=== PATIENT | male | born 1950 | race Caucasian/White ===

== ENCOUNTER 2016-08-30 09:40 | Emergency (ER) | payer MEDICARE, MEDICAID ==
[~2016-08-30] VITALS: Ht 182.9 cm; Wt 110.0 kg
[~2016-08-30 09:40] MED LIST: AMOX-366 PO; AMOX500C2 PO; ASPI325T32 PO; CHOL500050 PO; FERR-83 PO; GABA-502 PO; IBUP200C PO; NICO1PAT5 TOPICAL; OXYC1TAB24 PO; SENN-133 PO
[2016-08-30 10:04] VITALS: BP 140/97; PULSE 95; RESP 16; O2SAT 97
--- NOTE | 2016-08-30 10:14 | ED.REPORT ---
HPI-Extremity Problem Lower Date of Service Aug 30, 2016 ED Provider: Dr. Marc Conklin Patient is as 65 year old male who presents to the ED with right foot pain onset 2 weeks ago. Pt began experiencing redness and swelling which has progressively gotten worse since onset. 5 days ago he began experiencing erythema spreading up his right leg and also noted numbness and tingling radiating from 3/4 up the tibia down to the toes. He hit his little toe on his left foot 2 weeks ago and also hit his right gomez. Pt c/o associated occasional diaphoresis and has felt warm. Pt denies loss of strength, chest pain, and SOB. Pt has been leading a sedentary lifestyle. Nursing Notes Stated Complaint: FEET PAIN Chief Complaint: Extremity Trauma Nursing Notes Reviewed: Yes Allergies: Coded Allergies: Sulfa (Sulfonamide Antibiotics) (Verified Adverse Reaction, Severe, nausea , vomitting, 09/12/16) Scheduled Amoxicillin/Clav K 875-125 mg (Augmentin 875-125 mg) 1 Each Tablet 1 TABLET PO BID Atorvastatin Calcium (Atorvastatin Calcium) 10 Mg Tablet 10 MG PO HS Clopidogrel (Clopidogrel) 75 Mg Tablet 75 MG PO DAILY Insulin Glargine (Lantus U100 Insulin Vial) 100 Unit/Ml Vial 30 UNIT SUBQ HS Metformin (Glucophage) 500 Mg Tablet 500 MG PO BID Nicotine 21 mg/24 hr Patch (Nicotine 21 mg/24 hr Patch) 1 Each Patch.td24 1 PATCH TOPICAL DAILY Scheduled PRN Hydrocodone-Acetaminophen 5-325 mg (Hydrocodone-Acetaminophen 5-325 mg) 1 Each Tablet 1-2 TABLET PO Q4H PRN PRN For Mild Pain Hydrocodone-Acetaminophen 5-325 mg (Hydrocodone-Acetaminophen 5-325 mg) 1 Each Tablet 1 TABLET PO Q4H PRN PRN For Pain Sennosides (Senna) 8.6 Mg Tablet 17.2 MG PO BID PRN PRN For Constipation General Time Seen by MD: 10:14 Chief Complaint Other (Right foot swelling and pain) Hx Obtained From: Patient Arrived By: Walk-in Onset Occurred: 5 days ago Symptom Duration: Since onset Location: : Foot right Severity: Current: Mild Severity: Maximum: Mild Recent Healthcare: No recent doctor visit, No recent hospitalization Similar Sx Previous: No Past Medical History Past Medical History Notes: PCP: Dr. Mitchell Past Medical History Arthritis Denies: Diabetes mellitus Past Surgical History Left index finger Knee Multiple I&D Smoking History Current Every Day Smoker Social History Alcohol Use: 3-5 per day Drug Use: THC Ambulatory Status Independent Review of Systems Constitutional: Denies: Fever Musculoskeletal: Reports: Extremity swelling (right foot and right calf) Skin: Reports Diaphoresis, Reports Rash Neurologic: Reports: Numbness (and tingling in foot), Denies: Weakness Complete sys rev & neg: except as marked. Physical Exam Initial Vital Signs Initial VS: Reviewed, Vital signs normal Head / Eyes: Atraumatic, Normocephalic, PERRL ENT: Mucous membranes moist, Conjunctiva normal, No scleral icterus Neck: Supple, Non-tender, Full range of motion Respiratory: Breath sounds normal, Clear to auscultation, No respiratory distress Cardiovascular: Regular rate & rhythm, Heart sounds normal, Intact distal pulses Neurologic: Alert, Oriented, Nonfocal Psychiatric: Mood/affect normal, Behavior normal, Normal thought content Lower Extremity / Pelvis / MS: Atraumatic, No deformity, Neurologic intact, Vascular intact Right Leg / Calf: Positive: Erythema present, Swelling present... (Moderate) Redness and swelling of right posterior aspect of leg erythema spreading up right leg radiating from 3/4 up the tibia down to toes Right Foot: Positive: Swelling present... 0.5cm ulceration over lateral right fifth toe thickened flaky nails General/Constitutional: Awake, Alert, No acute distress, Cooperative, Not toxic appearing Re-Eval/Medical Decision Med Decision/Clinical Course 65-year-old male presenting with warmth, swelling, tenderness, and erythema of the right lower extremity. He experienced extremity trauma about 2 weeks ago when this started. He also has significant scaling and deep crevices in the lower extremity which could have led to an infection. He has no signs of sepsis or severely abnormal vital signs today. The demarcation of erythema was traced with a marker patient was instructed to take antibiotics and pain medicine, return if symptoms worsen or are not improving. Re-Evaluation/Progress : Time of Eval: 11:15 Re-Evaluation/Progress Note: Pt rechecked. Informed pt of diagnosis and plan for treatment. Pt understands and agrees with plan. F/U and RTER warnings given. All questions addressed. Counseled Regarding: Diagnosis, Need for follow-up, When/why to return to ED Discharge & Departure Impression: Primary Impression: Cellulitis of right lower extremity Disposition: Home Discharge Condition All VS Reviewed: Yes Condition: Stable Patient Instructions: Cellulitis (ED) Additional Instructions: Take antibiotics and pain medication as prescribed. Follow up with your primary care provider next week. Return to the ER if the redness spreads, the pain increases, or you start having drainage. Use ibuprofen as a baseline pain medication and use [place] as needed for breakthrough pain. Referrals: Tiffany Mitchell MD (PCP) Scribe Attestation Portion of this note were transcribed by Trace Stock and Janis Jimenez. I, Dr. Conklin, personally performed the history, physical exam, and medical decision-making: I reviewed and confirmed the accuracy for the information in the transcribed note. Signed by: nuno Fletcher, 08/30/16 1200 copies to: Tiffany Mitchell MD, Gary R DO Aug 30, 2016 10:14 JANIS JIMENEZ Aug 30, 2016 11:18 TRACE STOCK Aug 30, 2016 12:05 Marc Conklin DO Aug 30, 2016 10:14 JANIS JIMENEZ Aug 30, 2016 11:18 TRACE STOCK Aug 30, 2016 12:05
[2016-08-30 11:24] VITALS: BP 188/96; PULSE 98; RESP 13; O2SAT 96
[2016-08-30] MEDS ORDERED: HYDR-4003 PO (11:24)
[2016-08-30] MEDS ORDERED: CLIN-78 PO (11:24)
[2016-08-30 11:34] VITALS: BP 188/96; PULSE 98; RESP 13; O2SAT 96
== END 2016-08-30 11:34 | disposition home or self-care (01) ==
LOC: SED 09:40
DX: L03.115 Cellulitis of right lower limb (principal); W22.8XXA Striking against or struck by other objects, initial encounter; Y92.9 Unspecified place or not applicable; Y93.89 Activity, other specified; Y99.8 Other external cause status; F17.200 Nicotine dependence, unspecified, uncomplicated; Z79.84 Long term (current) use of oral hypoglycemic drugs; Z79.4 Long term (current) use of insulin; Z88.2 Allergy status to sulfonamides

== ENCOUNTER 2016-09-05 16:47 | Inpatient (IN) | payer MEDICARE, MEDICAID ==
[~2016-09-05] VITALS: Ht 182.9 cm; Wt 101.0 kg
[~2016-09-05 16:47] MED LIST changes: +CLIN-78 PO; +HYDR-4003 PO
[2016-09-05 16:52] VITALS: BP 148/86; PULSE 107; RESP 16; O2SAT 94
[2016-09-05] MEDS ORDERED: 0.9% Sodium Chloride 1,000 ML IV ONE (20:15)
--- NOTE | 2016-09-05 20:24 | ED.REPORT ---
HPI-Rash / Abscess Date of Service Sep 05, 2016 ED Provider: Vito Cali PA-C Patient is an otherwise healthy 65-year-old male who presents to the emergency department with right foot cellulitis. He was seen in the department approximately 6 days ago, placed on clindamycin. He reports inadequate response , with redness advancing past the demarcation placed at his first visit. He states his pain is as severe as it was previously, and did not respond well to narcotic pain medication. Admits to episodes of feeling hot last night. Denies chills, malaise, abdominal pain, vomiting, sweating. Denies known exposure to MRSA Nursing Notes Stated Complaint: CELLULITIS RT FOOT Chief Complaint: Extremity Trauma Nursing Notes Reviewed: Yes Allergies: Coded Allergies: Sulfa (Sulfonamide Antibiotics) (Verified Adverse Reaction, Severe, nausea , vomitting, 09/05/16) Scheduled Amoxicillin (Amoxicillin) 500 Mg Capsule 500 MG PO QID Amoxicillin/Clav K 875-125 mg (Augmentin 875-125 mg) 1 Each Tablet 1 TABLET PO BID Cholecalciferol (Vitamin D3) (Vitamin D3) 50,000 Unit Capsule 50,000 UNIT PO every friday Clindamycin (Clindamycin) 300 Mg Capsule 300 MG PO QID Ferrous Sulfate (Ferrous Sulfate) 325 Mg Tablet 325 MG PO DAILYWM Gabapentin (Gabapentin) 300 Mg Capsule 300 MG PO QAM Gabapentin (Gabapentin) 300 Mg Capsule 600 MG PO HS Scheduled PRN Aspirin (Aspirin) 325 Mg Tablet 325 MG PO WEEKLY PRN PRN For Pain Hydrocodone-Acetaminophen 5-325 mg (Hydrocodone-Acetaminophen 5-325 mg) 1 Each Tablet 1 TABLET PO Q4H PRN PRN For Pain Ibuprofen (Ibuprofen) 200 Mg Capsule 200 MG PO DAILY PRN PRN For Pain Nicotine 14 mg/24 hr Patch (Nicotine 14 mg/24 hr Patch) 1 Patch Patch 1 PATCH TOPICAL DAILY PRN PRN For Tobacco Withdrawal Sennosides (Senna) 8.6 Mg Tablet 17.2 MG PO BID PRN PRN For Constipation oxyCODONE-Acetaminophen 5-325 mg (oxyCODONE-Acetaminophen 5-325 mg) 1 Tab Tablet 1 TAB PO Q6H PRN PRN For Severe Pain General Time Seen by MD: 19:57 Chief Complaint Tender/swollen area (right foot) Past Medical History Past Medical History Notes: PCP: Dr. Paula Past Medical History Arthritis Past Surgical History Left index finger Knee Multiple I&D Smoking History Current Every Day Smoker Social History Alcohol Use: 3-5 per day Drug Use: THC Ambulatory Status Independent Review of Systems Negative unless stated otherwise in history of present illness Physical Exam General: Well appearing, well developed, well nourished, no acute distress. Head: Atraumatic, normocephalic. Eyes: No scleral icterus or injection. No discharge. Vision grossly intact. ENT: Voice clear, hearing grossly intact. Respiratory: Regular rate and rhythm. Breath sounds present, clear to auscultation and equal bilaterally. Cardiovascular: Regular rate and rhythm, without murmur, gallop or rub. No pedal edema. Gastrointestinal: Abdomen flat and non-tender without guarding or rebound. Bowel sounds normoactive. Right foot: 1 cm eschar on the lateral fifth digit, 2 cm eschar on anterior leg. Widely distributed redness, warmth, swelling and tenderness to midshin. No exudate noted. Slight redness beyond demarcation placed 6 days ago. Skin: Warm and dry. Neurological: Grossly nonfocal. Antalgic gait Psychological: Alert and oriented. Speech appropriate, linear and logical. Behavior appropriate. Initial Vital Signs Vital Signs (First) Date Time Temp Pulse Resp B/P Pulse Ox O2 Delivery O2 Flow Rate FiO2 09/05/16 16:52 36.1 107 16 148/86 94 Room Air Heart rate measured at 100 bpm during physical exam. Initial VS: Reviewed, Vital signs abnormal (tachycardic) Interpretation & Diagnostics Interpretation & Diagnostics: Warm foot with pulsations audible on hand-held Doppler Venous Doppler sound of right leg negative for DVT. Lab Results Interpretation Result Diagram: 09/05/16202909/05/16 2030 Test 09/05/16 20:30 White Blood Count 7.7th/mm3 (3.8-10.1) Red Blood Count 5.33mil/mm3 (4.40-5.80) Hemoglobin 16.5g/dL (13.8-17.2) Hematocrit 47.2% (41.0-50.0) Mean Corpuscular Volume 88.6fL (81-100) Mean Corpuscular Hemoglobin 31.0pg (27.0-35.0) Mean Corpuscular Hemoglobin Concent 35.0% (32.0-37.0) Red Cell Distribution Width 12.7% (12.3-15.4) Platelet Count 231bil/L (150-400) Neutrophils (%) (Auto) 55.6% (40-74) Lymphocytes (%) (Auto) 34.9% (14-46) Monocytes (%) (Auto) 7.0% (4-12) Eosinophils (%) (Auto) 2.1% (0-5) Basophils (%) (Auto) 0.3% (0-3) Sodium Level 137mEq/L (134-144) Potassium Level 4.3mEq/L (3.5-5.2) Chloride Level 101mEq/L (97-108) Carbon Dioxide Level 24mmol/L (18-29) Blood Urea Nitrogen 16mg/dL (8-27) Creatinine 0.62mg/dL (0.76-1.27) Estimat Glomerular Filtration Rate 138mL/min (>59) Glucose Level 295mg/dL (60-99) Calcium Level 9.4mg/dL (8.5-10.1) Total Bilirubin 0.4mg/dL (0.0-1.2) Aspartate Amino Transf (AST/SGOT) 13U/L (0-50) Alanine Aminotransferase (ALT/SGPT) 16U/L (0-44) Alkaline Phosphatase 99U/L (25-160) Total Protein 7.5g/dL (6.4-8.4) Albumin 4.3g/dL (3.4-5.0) Hold Solis Top Tube Received (Received) Re-Eval/Medical Decision Consultation : Referral / Consult Name: Esly Dela Cruz DO Consulted With: Hospitalist Requested Call at: 21:06 Call Returned at: 21:16 Assistant Speech Language Pathologist: Accepts admit Discharge & Departure Impression: Primary Impression: Cellulitis of right lower extremity Disposition: ADMITTED TO HOSPITAL Referrals: Tiffany Mitchell MD (PCP) copies to: Tiffany Mitchell MD, Seth PA-C Sep 05, 2016 20:24
[2016-09-05 20:41] LABS: BASOPHILS % (AUTO) 0.3 % (0-3); EOSINOPHILS % (AUTO) 2.1 % (0-5); Mean Corpuscular Volume 88.6 fL (81-100); NEUTROPHILS % (AUTO) 55.6 % (40-74); Platelet Count 231 bil/L (150-400)
[2016-09-05] MEDS ORDERED: Vancomycin Dose per Pharmacist XX ONE (20:50)
[2016-09-05] MEDS ORDERED: Alum-Mag Hydrox-Simeth 30 mL Suspension PO PRN (21:25)
[2016-09-05] MEDS ORDERED: Polyethylene Glycol (PEG) 17 Gm Powder PO PRN (21:25)
[2016-09-05] MEDS ORDERED: Ondansetron 2 mg/mL 2 mL Inj IVPUSH PRN (21:25)
[2016-09-05] MEDS ORDERED: cefTRIAXone Inj 2,000 MG in IV Premix 1 EACH IV ONE (21:35)
--- NOTE | 2016-09-05 21:35 | DRSVH ---
PROCEDURE: US VEINOUS LEG DUPLEX UNILATERAL, RIGHT INDICATIONS: right leg swelling TECHNIQUE: Real-time imaging, as well as color and pulse Doppler interrogation, were performed of the lower extr emity deep veins from the inguinal ligament to the popliteal fossa. COMPARISON: None. FINDINGS: The deep veins are normally compressible, and free of intraluminal thrombus. Color and pu lse Doppler demonstrate normal phasic intraluminal flow. There is normal augmentation response to di stal compression maneuver. IMPRESSION: No evidence of deep vein thrombosis involving the right lower extremity. Dictated by: Mary Morgan MD, PhD on 09/05/2016 at 21:33 Approved by: Mary Morgan MD, PhD on 09/05/2016 at 21:33
[2016-09-05] MEDS ORDERED: Insulin Human REGular Inj 100 UNIT in 0.9% Sodium Chloride-Pha MIX 100 ML IV SCH (23:10)
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
[2016-09-05 23:15] LABS: INR 0.91 ratio
--- NOTE | 2016-09-05 23:15 | NUR ---
Admit Took report from SAIMA Guillen from ER @ 2199, unfortunately d/t bed availability did not arrive until 2314 via viji with Hiren, ambulated ind to bed Dx RLE cellulitis vs arterial occlusion, per u/s no dvt found, ankle red area borders marked ,medicated w/toredol in ER w/some effect also patient has orders to start on insulin drip for suspected untreated DM II, admission complete , was initially being with outpatient antibiotic w/out effect, arrived w/Vancomycin running
[2016-09-05 23:45] VITALS: BP 111/41; PULSE 75; RESP 18; O2SAT 92
[2016-09-06] VITALS (15 sets, daily range): BP systolic 126–178; BP diastolic 72–95; PULSE 67–91; RESP 2–20; O2SAT 93–97
[2016-09-06] MEDS: HYDROcodone-APAP 5-325 mg Tablet PO PRN ×3 (01:27→14:20)
[2016-09-06] MEDS: Dextrose 10% 250 ML IV SCH ×2 (02:46→08:04)
[2016-09-06] MEDS ORDERED: Heparin 25K Unit/500mL 0.45 NS 25,000 UNIT in IV Premix 1 EACH IV SCH (02:50)
[2016-09-06] MEDS ORDERED: Heparin 5,000 Unit/mL Inj IVPUSH PRN (02:50)
[2016-09-06] MEDS ORDERED: Heparin 5,000 Unit/mL Inj IVPUSH ONE (02:55)
--- NOTE | 2016-09-06 03:32 | NUR ---
Heparin drip heparin gtt started per new order dbl check w/ Marisol León RN starting @ 18 unit/kg first PTT @ 0930
[2016-09-06 07:32] LABS: BASOPHILS % (AUTO) 0.5 % (0-3); MONOCYTES % (AUTO) 8.7 % (4-12); Mean Corpuscular Hemoglobin 31.2 pg (27.0-35.0); Mean Corpuscular Volume 89.5 fL (81-100); NEUTROPHILS % (AUTO) 51.9 % (40-74); Platelet Count 214 bil/L (150-400)
[2016-09-06 08:32] LABS: Magnesium 2.2 mg/dL (1.6-2.6); Phosphorus 3.5 mg/dL (2.5-4.9)
--- NOTE | 2016-09-06 08:47 | NUR ---
Insulin gtt Insulin gtt discontinued per Dr Herr. Pt will receive Humalog sliding scale ACHS. Diet also changed to ADA per Dr Herr. Will continue to monitor BG levels.
[2016-09-06] MEDS: cefTRIAXone Inj 2,000 MG in IV Premix 1 EACH IV SCH (09:37)
--- NOTE | 2016-09-06 09:45 | NUR ---
Heparin gtt Heparin gtt stopped per Dr Herr. Pt will be having a procedure.
--- NOTE | 2016-09-06 10:42 | NUR ---
Off floor Pt off floor for brick and blocker aid labor procedure.
[2016-09-06] MEDS ORDERED: 0.9% Sodium Chloride 1,000 ML ONE (10:51)
[2016-09-06] MEDS ORDERED: Heparin 5,000 Units/500 mL NS Premix IV ONE (10:51)
[2016-09-06] MEDS ORDERED: Heparin 1,000 Unit/mL 10 mL Inj ONE (10:51)
[2016-09-06] MEDS ORDERED: fentaNYL-PF 50 mCg/mL 2 mL Inj ONE ×2 (10:52→11:49)
[2016-09-06] MEDS ORDERED: Ondansetron 2 mg/mL 2 mL Inj IVPUSH PRN (14:45)
[2016-09-06] MEDS ORDERED: 0.9% Sodium Chloride 400 ML (4 HRS) IV ONE (14:45)
[2016-09-06] MEDS ORDERED: Sodium Chloride LOK Flush 10 mL Syringe IVFLUSH PRN (14:45)
[2016-09-06] MEDS ORDERED: 0.9% Sodium Chloride 250 ML BOLUS IV PRN (14:45)
[2016-09-06] MEDS ORDERED: Atropine 1 mg/10 mL (Code) Syringe IVPUSH PRN (14:45)
--- NOTE | 2016-09-06 14:56 | NUR ---
microbiological lab technician NS 500 cc's during procedure.
--- NOTE | 2016-09-06 15:05 | NUR ---
Back on unit Pt back on unit. Pt denies current foot/leg pain. Pt has a STEPHENS at 5/10 but believes it was r/t the NC and is placing it in his mouth. Does not want another pain med at this time. Currently on 2L O2 at 94%. Denies CP and SOB. Some nausea relieved with eating. BG level 216 (after pt started eating). Hospitalist notified of BG level. Groin site is CDI. Will continue to monitor.
--- NOTE | 2016-09-06 16:30 | DRSVH ---
PROCEDURE: REVASC ILIAC W/ STENT INDICATIONS: CLAUDICATION COMPARISON: None. Technique: 1. Conscious sedation for 120 minutes. 2. Retrograde access via the left common femoral artery. 3. Pelvic angiogram. 4. Right lower extremity runoff. 5. Balloon angioplasty and stenting of a focal high-grade stenosis in the right external iliac artery . 6. Balloon angioplasty of multi-focal moderate to high-grade stenoses within the proximal and mid rig ht superficial femoral artery. 7. Completion angiogram. 8. Sheath removal hemostasis. The indications, alternatives, benefits, risks, and complications of the procedure were explained to the patient.. Informed written consent was obtained and placed in the chart. The patient was manjit t to the angiography suite, and conscious sedation was administered intravenously by care home staff, while continuous cardiorespiratory monitoring was performed. Maximum sterile barrier technique was employed per standard protocol, including hand hygiene, cap, ma sk, sterile gown and gloves, and 2% chlorhexidine. One percent lidocaine was used to anesthetize the skin over the left groin. Using Seldinger technique and a micropuncture kit, the left common femoral artery was accessed in a retrograde fashion. The micropuncture sheath was exchanged for a 5 Grenadian sh eath. A 4 Grenadian pigtail catheter was advanced into the distal aorta. A pelvic arteriogram was perfor med. Next, with the aid of a 5 Gren[place] Sos catheter, the right common iliac artery was accessed. Right lower extremity arteriogram was performed. The 5 Grenadian sheath was exchanged for an Riki sheath. Ba lloon angioplasty was performed for a focal high-grade stenosis within the right external iliac arter y. This was performed with a 5 mm x 40 mm high-pressure balloon and subsequently with a 6 mm x 40 mm high-pressure balloon. Next balloon angioplasty was performed for multifocal moderate to high-grade stenoses within the prox imal and mid right superficial femoral artery with the 6 mm x 40 mm high-pressure balloon. Completion arteriogram was performed. Multiple attempts were undertaken with various wires in directing catheters to cross the occluded por tion of the distal SFA without success. Completion angiogram of the right external iliac artery demonstrated a recalcitrant stenosis. For thi s reason, a balloon expandable 7 mm x 39 mm stent was deployed across the angioplasty site. Completio n arteriogram was performed. Perclose closure device was deployed at the left common femoral access site and hemostasis was achiev ed. FINDINGS: Aorta: The distal aorta demonstrates moderate mural irregularity. No aneurysmal dilatation or stenosi s. Left side: A focal moderate grade stenosis is present within the left common iliac artery. The left h ypogastric artery is patent with diffuse mural irregularity. The left external iliac artery is patent with mild to moderate diffuse mural irregularity. A filling defect within the left common femoral ar teries suggests the presence of a moderate to high-grade stenosis. Right side: The common iliac artery is patent. The right hypogastric artery demonstrated diffuse mura l irregularity and is patent. A focal high-grade stenosis is present within the midportion of the rig ht external iliac artery. The more distal external iliac artery is patent. The common femoral artery is patent. The profunda artery is patent. Multifocal moderate to high-grade stenoses are present with in the proximal and midportion of the right superficial femoral artery. The distal right superficial femoral artery is occluded and reconstituted via collaterals at the abductor hiatus. There is no residual narrowing at the angioplasty and stent site in the right external iliac artery. There is resolution of the multifocal narrowing in the proximal and mid superficial femoral artery af ter angioplasty. Of note, a small dissection, which appears patent is present within the midportion o f the right superficial femoral artery after angioplasty. IMPRESSION: 1. Status post angioplasty and stenting of a focal high-grade stenosis within the right external kimi c artery without residual stenosis. 2. Status post angioplasty of multifocal moderate to high-grade stenoses within the proximal and mid superficial femoral artery without residual stenosis. 3. Small, patent appearing dissection within the midportion of the right SFA. 4. Unsuccessful attempt to cross the stenosed portion of the distal right SFA. Consider timely vascul ar surgical consultation to evaluate for possible bypass graft. Dictated by: Ella Amaro M.D. on 09/06/2016 at 16:28 Approved by: Ella Amaro M.D. on 09/06/2016 at 16:28
--- NOTE | 2016-09-06 16:36 | DRSVH ---
PROCEDURE: CT ANGIOGRAPHY OF THE AORTA WITH RUN-OFF WITH AND WITHOUT CONTRAST ([id number]) INDICATIONS: swelling, cyanosis, (-)US TECHNIQUE: After the administration of intravenous contrast, 2 and 5 mm sections acquired from the mid pelvis to the feet, with optional delayed image acquisition from the knees to the feet. 3-dimensional maximum intensity projection (MIP) coronal and sagittal reformats, and/or 3-dimensional volume rendering ref ormatting was then performed. For radiation dose reduction, the following was used: automated expos ure control. COMPARISON: [facility], XA, REVASC ILIAC W/ STENT, 09/06/2016, 11:10. FINDINGS: Image quality: . Extravascular tissues: Non opacified bowel loops demonstrate normal wall thickness and enhancement . There are scattered sigmoid diverticula. No evidence for diverticulitis. No free fluid or air. No retroperitoneal or mesenteric adenopathy. No ventral hernias. Bladder wall thickness is normal. N o inguinal hernias or adenopathy. No suspicious bony lesions. No vertebral body compression fractur es. Right lower extremity: Visualized portions of the hypogastric artery are calcified, but patent. A foc al high-grade stenosis is present within the midportion of the right external iliac artery. A moderat e grade stenosis is present more distally within the right external iliac artery. Mild stenosis is pr esent within the right common femoral artery. Multiple moderate grade stenoses are present within the proximal half of the right superficial femoral artery. The distal right superficial femoral artery i s occluded with reconstitution of the popliteal artery at the abductor hiatus the arch collaterals. T he geniculate portion of the popliteal artery is patent. The tibialis posterior and peroneal arteries are patent to the level of the foot. The anterior tibial artery is patent to the level of the foot. Mild subcutaneous edema is present within the inferior right lower extremity and the foot. A scleroti c lesion is present within the distal right femoral metaphysis. This demonstrates endosteal scallopin g and cortical erosion (series 10, image 256). Left lower extremity: Visualized portions of the left hypogastric artery are densely calcified, but p atent. The left common iliac artery is patent with diffuse mural irregularity secondary to atheromato us calcification. The common femoral artery is patent. The left profunda artery is patent. The proxim al portion of the left superficial femoral artery is patent. The midportion of the left superficial f emoral artery is occluded with reconstitution via collaterals at the abductor hiatus. The left poplit eal artery is patent. The anterior tibial, posterior tibial, and peroneal arteries are patent to the level of the foot. IMPRESSION: 1. Focal high-grade stenosis within the midportion of the left external iliac artery. 2. Occlusion of the inferior aspect of the bilateral superficial femoral arteries with reconstitution of the popliteal arteries at the abductor hiatus via collaterals. 3. 3 vessel bilateral lower extremity runoff. 4. Diverticulosis. No acute diverticulitis. 5. Mild subcutaneous edema within the inferior aspect of the right lower extremity and foot. No edema within the deep fascial layers. 6. Small sclerotic lesion with endosteal scalloping and cortical thinning in the medial, distal right femoral metaphysis. Given the cortical thinning and endosteal scalloping, neoplasm cannot be exclude d. MRI of this region with and without contrast is recommended to further characterize this finding. Dictated by: Ella Amaro M.D. on 09/06/2016 at 16:07 Approved by: Ella Amaro M.D. on 09/06/2016 at 16:34
--- NOTE | 2016-09-06 16:51 | PCM.PNMED ---
Subjective Date of Service Sep 06, 2016 Subjective Patient was examined at bedside today. Patient denies any chest pain, shortness of breath, nausea, vomiting, diarrhea. Patient was complaining of right lower extremity tenderness and discoloration of skin. Exam Vital Signs Vital Sign - Last Date Time Temp Pulse Resp B/P Pulse Ox O2 Delivery O2 Flow Rate FiO2 09/06/16 16:15 36.5 85 14 155/91 94 Nasal Cannula 2.00 Intake and Output 09/05/16 09/05/16 09/06/16 Cumulative From/Thru 15:00 23:00 07:00 09/05/16 16:52 - 09/06/16 06:28 Intake Total 801 ml 801 ml Output Total 650 ml 650 ml Balance 151 ml 151 ml Intake Oral 60 ml 60 ml IV Total 741 ml 741 ml Output Urine Total 650 ml 650 ml # Bowel Movements 0 0 Exam Physical Exam: GEN: Patient was awake, alert, responding appropriately to questions HEENT: PERRLA, EOMI, Neck soft supple, trachea midline, nomocephalic/atraumatic CV: +S1/S2, RRR, no murmurs auscultated Respiratory: CTAB, no wheezes, rales, rhonchi GI: +bowel sounds x4, soft, compressible, non TTP EXT: Right lower extremity positive cyanosis from the knee down to the right fifth digit, ulceration on the plantar surface of the right foot fourth metatarsal area and anterior surface of the distal two thirds tibia. Muscular skeletal:5/5 strength in dorsi and plantar flexion, S1 intact Neuro: CN II-XII grossly intact, +2/4 dorsalis pedis and tibialis posterior pulses Psych: mood and affect were appropriate Physical exam post procedure Right lower extremity pink from the knee down to the fifth digit of the right foot. Muscular skeletal:5/5 strength in dorsi and plantar flexion, S1 intact Neuro: CN II-XII grossly intact, +2/4 dorsalis pedis and tibialis posterior pulses IVs and Medications Medications Reviewed: Medications were reviewed in detail Medications Current Medications Ceftriaxone Sodium/Dextrose/ Premix 50 ml @ 100 mls/hr Q24 IV Last administered on 09/06/16t 09:37; Admin Dose 100 MLS/HR; Start 09/06/16 at 08:30 Al Hydrox/Mg Hydrox/Simethicone 30 ml Q6H PRN PO; Start 09/05/16 at 21:25 Ondansetron HCl 4 to 8 mg Q4H PRN IVPUSH; Start 09/05/16 at 21:25 Senna 17.2 mg BID PRN PO; Start 09/05/16 at 21:25 Polyethylene Glycol 17 gm DAILY PRN PO; Start 09/05/16 at 21:25 Ketorolac Tromethamine 30 mg 30 mg Q8H PRN IV; Start 09/05/16 at 23:10; Stop at 02:52; Status DC Insulin Human Regular/Sodium Chloride 101 ml @ 0 mls/hr Q0M IV Last administered on 09/06/16 02:47; Admin Dose 0 MLS/HR; Start 09/05/16 at 23:10; Stop 09/06/16 at 09:18; Status DC Acetaminophen/ Hydrocodone Bitart for severe pain not control... Q4H PRN PO Last administered on 09/06/16 14:20; Admin Dose 2 TABLET; Start 09/06/16 at 00: 45 Dextrose/Water 250 ml @ 50 mls/hr Q5H IV Last administered on 09/06/16 08:04; Admin Dose 50 MLS/HR; Start 09/06/16 at 02:40; Stop 09/06/16 at 09:18; Status DC Heparin Sodium (Porcine) Per Protocol for a... PRN PRN IVPUSH; Start 09/06/16 at 02:50; Stop 09/06/16 at 09:44; Status DC Insulin Human Lispro PER PROTOCOL PRN PRN SUBQ; Start 09/06/16 at 09:25 Lidocaine HCl 10 ml ONCE PRN INJ; Start 09/06/16 at 14:45 Atropine Sulfate 1 mg ONCE PRN IVPUSH; Start 09/06/16 at 14:45 Sodium Chloride 10 ml AMINATA PRN IVFLUSH; Start 09/06/16 at 14:45 Clopidogrel Bisulfate 75 mg DAILY PO; Start 09/07/16 at 08:30 Acetaminophen 975 mg Q6H PRN PO; Start 09/06/16 at 14:45 Morphine Sulfate 1-4 MG IV PUSH EVERY 5 DEONTE... Q5M PRN IVPUSH; Start 09/06/16 at 14:45; Stop 09/06/16 at 16:24; Status DC Ondansetron HCl 4-8 MG IV PUSH EVERY 4 HO... Q4H PRN IVPUSH; Start 09/06/16 at 14:45 Morphine Sulfate 2 mg Q4H PRN IVPUSH; Start 09/06/16 at 16:20 Insulin Glargine 10 unit HS SUBQ; Start 09/06/16 at 21:00 Lab and Diagnostics Result Diagram: 09/06/16 0654 09/06/16 0654 Microbiology Additional Diagnostics Venous duplex right lower extremity IMPRESSION: No evidence of deep vein thrombosis involving the right lower extremity. Dictated by: Mary Morgan MD, PhD on 09/05/2016 at 21:33 Assessment & Plan This 65-year-old male with significant smoking history and diabetes has been untreated presents to the ED with ongoing right lower extremity swelling, pain, erythema, and cyanosis of toes suspicious for arterial occlusion. Suspected arterial embolism/occlusion with subacute limb ischemia; present on admission; ongoing -Patient was previously treated for this erythema with clindamycin without the mildest of resolution; patient reports history of PVD -Patient does not present with fever, white count, left shift, chills, or other signs of infection; patient is diabetic but the history suggests that the eschars started sometime after the erythema and swelling -Venous duplex was negative for DVT -CT angiography of right lower extremity -Discontinue heparin Vascular occlusion secondary to peripheral vascular disease -- Angiogram and angioplasty performed today with stent placement performed by interventional radiology -- Pain control post procedure [place] and morphine for breakthrough pain -- Consult physical therapy Cellulitis of the right lower extremity -- Blood cultures positive for gram variable rods sensitivity pending -- Continue Rocephin New-onset diabetes type II -- DC insulin drip -- Accu-Cheks before meals and at bedtime -- Metformin 500 mg twice a day -- Lantus 10 units daily at bedtime -- Hemoglobin A1c pending.orrection exam -- Consult nutrition Peripheral vascular disease -- LDL elevated 140 -- Elevated cholesterol ratio 5.64 -- Start atorvastatin 10 mg daily at bedtime Smoking cessation -- Patient has been counseled on the benefits of smoking cessation Disposition: Patient is currently doing well. Patient tolerated the angioplasty well. Vision had a high-grade narrow stenosis of the iliac artery which was stented. The patient also has a superficial femoral artery occlusion which could not be stented and interventional radiology has recommended that the patient follow-up with vascular surgery for possible bypass graft. Patient is currently doing well able to move all his extremities the color of his skin is now pink as a posterior cyanotic as it presented this morning. Pain Evaluation: Adequate Pain Control GI Prophylaxis: H2 beni Resuscitation Status: CPR: Attempt Resuscitation Leonor Herr DO Sep 06, 2016 16:51
[2016-09-06] MEDS: Insulin LISPRO Low-Dose Scale SUBQ PRN (18:02)
--- NOTE | 2016-09-06 18:30 | NUR ---
Right foot erythema Right foot appears slightly more red, and small right toe appears purple. Pedal pulse still weak to palpation. Hospitalist notified. No new orders.
--- NOTE | 2016-09-06 20:10 | NUR ---
guaiac woke up diaphoretic, afebrile pain improved had lrg BM guaiac sent
[2016-09-06] MEDS: Insulin GLARgine 100 Unit/mL Syringe SUBQ SCH (21:24)
[2016-09-07] VITALS (8 sets, daily range): BP systolic 128–165; BP diastolic 70–87; PULSE 69–96; RESP 16–19; O2SAT 91–94
[2016-09-07] MEDS: HYDROcodone-APAP 5-325 mg Tablet PO PRN ×3 (02:20→21:43)
--- NOTE | 2016-09-07 05:48 | NUR ---
Pain still with fluctuating pain to R foot medicated with IV morphine and PO [place] effective reaching goal 09/27
[2016-09-07] MEDS: cefTRIAXone Inj 2,000 MG in IV Premix 1 EACH IV SCH (08:00)
[2016-09-07 08:02] LABS: Mean Corpuscular Hemoglobin 30.8 pg (27.0-35.0); Mean Corpuscular Volume 89.9 fL (81-100)
[2016-09-07] MEDS: Insulin LISPRO Low-Dose Scale SUBQ PRN ×3 (08:09→17:14)
--- NOTE | 2016-09-07 15:23 | NUR ---
Evaluation completed. Please go to "Notes" then click on "Assessments and Notes" (bottom left corner of screen). Then select appropriate discipline tab on top of screen.
--- NOTE | 2016-09-07 15:43 | NUR ---
INPATIENT DIABETES EDUCATION CONSULT. Inpatient diabetes education provided today, discussion and handouts for reference. [facility] RN's faxed to provide glucometer and non-nutrition education. Patient has family and friends with diabetes, comprising a network of good social support. Discussed cabohydrate counting and shopping strategies. Patient will be discharging with new insulin and oral med starts. Recommended he contact outpatient program for insulin class, as a minimum.
--- NOTE | 2016-09-07 15:50 | NUR ---
Social Work: JERMAINE Patient signed JERMAINE
--- NOTE | 2016-09-07 15:55 | NUR ---
Social Work: Initial Assessment Data & assessment: EMR Reviewed. See Initial Assessment. Patient is a 65 y/o male that admitted due to right foot cellulitis. Technical Intern met with patient at bedside to complete initial assessment, review SW role and discuss discharge planning. Patient confirmed that his NOK is Dereck Coronel (brother) [phone] and his PCP is Tiffany Mitchell MD. Patient's re-admission score is low at 2. Patient's insurance is [employer]. Patient does not have a DPOA and declined information and stated that he already has the information. Patient does not have VA or LTC benefits. Patient is independent at [place] and does drive. Patient lives in a two level home with two steps to enter and a ramp. Patient has 15 steps inside his home, but he does not have to go to the second level. Patient has a walker and crutches. Patient does not have any HH or SNF history. Currently patient does not have any discharge needs at the current time. It is likely that the patient will discharge home no needs in POV. SW will continue to follow. Plan:Currently patient does not have any discharge needs at the current time. It is likely that the patient will discharge home no needs in POV. SW will continue to follow. Briana Lugo LMSW, MEDINA Addendum: 09/07/16 at 1607 by BRIANA LUGO SS Amended: Links added.
--- NOTE | 2016-09-07 17:20 | PCM.PNMED ---
Subjective Date of Service Sep 07, 2016 Subjective Patient was examined at bedside today. Patient denies any chest pain, shortness of breath, nausea, vomiting, diarrhea. Patient reports mild pain secondary to surgery but seems to be managed with current pain medication regimen. Exam Vital Signs Vital Sign - Last Date Time Temp Pulse Resp B/P Pulse Ox O2 Delivery O2 Flow Rate FiO2 09/07/16 11:58 36.8 74 16 128/76 92 Room Air 09/06/16 17:45 2.00 Intake and Output 09/06/16 09/06/16 09/07/16 Cumulative From/Thru 15:00 23:00 07:00 09/05/16 16:52 - 09/07/16 06:54 Intake Total 200 ml 1000 ml 2001 ml Output Total 500 ml 800 ml 1950 ml Balance -300 ml 200 ml 51 ml Intake Oral 600 ml 660 ml IV Total 200 ml 400 ml 1341 ml Output Urine Total 500 ml 800 ml 1950 ml # Bowel Movements 1 1 Exam Physical Exam: GEN: Patient was awake, alert, responding appropriately to questions HEENT: PERRLA, EOMI, Neck soft supple, trachea midline, nomocephalic/atraumatic CV: +S1/S2, RRR, no murmurs auscultated Respiratory: CTAB, no wheezes, rales, rhonchi GI: +bowel sounds x4, soft, compressible, non TTP EXT: Mild cyanosis of the right lower extremity improved from yesterday color is improving, left lower extremity no clubbing cyanosis or edema, right lower extremity cellulitis improving, healing ulcer noted on the distal two thirds of the tibia and plantar surface of the right foot. Musculoskeletal: 5 out of 5 strength with dorsi and plantar flexion, S1 intact Neuro: CN II-XII grossly intact, +2/4 to dorsalis pedis and tibialis posterior pulses bilaterally Psych: mood and affect were appropriate IVs and Medications Medications Reviewed: Medications were reviewed in detail Medications Current Medications Ceftriaxone Sodium/Dextrose/ Premix 50 ml @ 100 mls/hr Q24 IV Last administered on 09/07/16t 08:00; Admin Dose 100 MLS/HR; Start 09/06/16 at 08:30 ; Stop 09/07/16 at 15:04; Status DC Al Hydrox/Mg Hydrox/Simethicone 30 ml Q6H PRN PO; Start 09/05/16 at 21:25 Ondansetron HCl 4 to 8 mg Q4H PRN IVPUSH; Start 09/05/16 at 21:25 Senna 17.2 mg BID PRN PO; Start 09/05/16 at 21:25 Polyethylene Glycol 17 gm DAILY PRN PO; Start 09/05/16 at 21:25 Ketorolac Tromethamine 30 mg 30 mg Q8H PRN IV; Start 09/05/16 at 23:10; Stop at 02:52; Status DC Insulin Human Regular/Sodium Chloride 101 ml @ 0 mls/hr Q0M IV Last administered on 09/06/16 02:47; Admin Dose 0 MLS/HR; Start 09/05/16 at 23:10; Stop 09/06/16 at 09:18; Status DC Acetaminophen/ Hydrocodone Bitart for severe pain not control... Q4H PRN PO Last administered on 09/07/16 07:56; Admin Dose 2 TABLET; Start 09/06/16 at 00: 45 Dextrose/Water 250 ml @ 50 mls/hr Q5H IV Last administered on 09/06/16 08:04; Admin Dose 50 MLS/HR; Start 09/06/16 at 02:40; Stop 09/06/16 at 09:18; Status DC Heparin Sodium (Porcine) Per Protocol for a... PRN PRN IVPUSH; Start 09/06/16 at 02:50; Stop 09/06/16 at 09:44; Status DC Insulin Human Lispro PER PROTOCOL PRN PRN SUBQ Last administered on 09/07/16 13:03; Admin Dose 1 UNIT; Start 09/06/16 at 09:25 Lidocaine HCl 10 ml ONCE PRN INJ; Start 09/06/16 at 14:45 Atropine Sulfate 1 mg ONCE PRN IVPUSH; Start 09/06/16 at 14:45 Sodium Chloride 10 ml AMINATA PRN IVFLUSH; Start 09/06/16 at 14:45 Clopidogrel Bisulfate 75 mg DAILY PO Last administered on 09/07/16 07:59; Admin Dose 75 MG; Start 09/07/16 at 08:30 Acetaminophen 975 mg Q6H PRN PO; Start 09/06/16 at 14:45 Morphine Sulfate 1-4 MG IV PUSH EVERY 5 DEONTE... Q5M PRN IVPUSH; Start 09/06/16 at 14:45; Stop 09/06/16 at 16:24; Status DC Ondansetron HCl 4-8 MG IV PUSH EVERY 4 HO... Q4H PRN IVPUSH; Start 09/06/16 at 14:45 Morphine Sulfate 2 mg Q4H PRN IVPUSH Last administered on 09/07/16 01:40; Admin Dose 2 MG; Start 09/06/16 at 16:20 Insulin Glargine 10 unit HS SUBQ Last administered on 09/06/16 21:24; Admin Dose 10 UNIT; Start 09/06/16 at 21:00 Metformin HCl 500 mg BID PO Last administered on 09/07/16 07:59; Admin Dose 500 MG; Start 09/06/16 at 20:30 Atorvastatin Calcium 10 mg HS PO Last administered on 09/06/16 21:23; Admin Dose 10 MG; Start 09/06/16 at 21:00 Enoxaparin Sodium 40 mg 40 mg DAILY SUBQ Last administered on 09/07/16 08:10; Admin Dose 40 MG; Start 09/07/16 at 08:30 Ceftriaxone Sodium/Dextrose/ Dextrose/Water 100 ml @ 200 mls/hr Q24 IV; Start 09/08/16 at 08:30 Lab and Diagnostics Result Diagram: 09/07/16 0710 09/07/16 0710 Microbiology Additional Diagnostics Venous duplex right lower extremity IMPRESSION: No evidence of deep vein thrombosis involving the right lower extremity. Dictated by: Mary Morgan MD, PhD on 09/05/2016 at 21:33 Assessment & Plan This 65-year-old male with significant smoking history and diabetes has been untreated presents to the ED with ongoing right lower extremity swelling, pain, erythema, and cyanosis of toes suspicious for arterial occlusion. Suspected arterial embolism/occlusion with subacute limb ischemia; present on admission; ongoing -Patient was previously treated for this erythema with clindamycin without the mildest of resolution; patient reports history of PVD -Patient does not present with fever, white count, left shift, chills, or other signs of infection; patient is diabetic but the history suggests that the eschars started sometime after the erythema and swelling -Venous duplex was negative for DVT -CT angiography of right lower extremity -Discontinue heparin Vascular occlusion secondary to peripheral vascular disease -- Angiogram and angioplasty performed today with stent placement performed by interventional radiology -- Pain control post procedure [place] and morphine for breakthrough pain -- Consult physical therapy Cellulitis of the right lower extremity -- Blood cultures positive for gram variable rods non-anthrax sensitivity pending -- Continue Rocephin New-onset diabetes type II -- DC insulin drip -- Accu-Cheks before meals and at bedtime -- Metformin 500 mg twice a day -- Lantus 10 units daily at bedtime -- Hemoglobin A1c pending.orrection exam -- Consult nutrition Peripheral vascular disease -- LDL elevated 140 -- Elevated cholesterol ratio 5.64 -- Start atorvastatin 10 mg daily at bedtime Smoking cessation -- Patient has been counseled on the benefits of smoking cessation Disposition: Patient is progressing well. Physical therapy to stop by today to make their recommendations. The patient currently lives at home alone and physical therapy recommendations would be appreciated. The patient does seem to be doing well and is reperfusing in the right lower extremity. GI Prophylaxis: H2 beni Resuscitation Status: CPR: Attempt Resuscitation Leonor Herr DO Sep 07, 2016 17:20
--- NOTE | 2016-09-07 18:14 | NUR ---
Activity Pt reportedly did well walking with PT. Pt requested a shower and was given permission by Dr Herr. Pt tolerated walking on right foot well and getting into shower. Will continue to monitor.
[2016-09-07] MEDS: Insulin GLARgine 100 Unit/mL Syringe SUBQ SCH (21:43)
[2016-09-08] VITALS (9 sets, daily range): BP systolic 130–156; BP diastolic 77–86; PULSE 70–95; RESP 16–20; O2SAT 89–94
--- NOTE | 2016-09-08 04:15 | NUR ---
Activity/pain Increase in mobility doing ankle pumps while awake "feels like foot cramps" Medicated for pain w/IV morphine and [place] w/effect
[2016-09-08 08:56] LABS: Mean Corpuscular Hemoglobin 30.6 pg (27.0-35.0); Mean Corpuscular Volume 89.1 fL (81-100)
[2016-09-08] MEDS: cefTRIAXone Inj 2,000 MG in Dextrose 5% Minibag Plus 50 ML IV SCH (09:40)
[2016-09-08] MEDS: HYDROcodone-APAP 5-325 mg Tablet PO PRN ×2 (10:05→17:23)
--- NOTE | 2016-09-08 11:49 | PCM.PNMED ---
Subjective Date of Service Sep 08, 2016 Subjective Patient was examined at bedside today. Patient denies any chest pain, shortness of breath, nausea, vomiting, diarrhea. Patient is complaining of right lower extremity pain secondary to the surgery but states that the pain has been well-controlled with oral medications. The patient does have some concerns about smoking cessation upon discharge along with his diabetes. Nutrition has been in to speak with the patient and the patient has been in contact with his primary care doctor about smoking cessation which was also discussed today. Patient seems to be okay with this and willing to make lifestyle changes to support his new diagnoses. Exam Vital Signs Vital Sign - Last Date Time Temp Pulse Resp B/P Pulse Ox O2 Delivery O2 Flow Rate FiO2 09/08/16 09:33 36.8 80 20 146/83 89 Room Air 09/06/16 17:45 2.00 Intake and Output 09/07/16 09/07/16 09/08/16 Cumulative From/Thru 15:00 23:00 07:00 09/05/16 16:52 - 09/08/16 06:39 Intake Total 838 ml 800 ml 3639 ml Output Total 800 ml 1450 ml 4200 ml Balance 38 ml -650 ml -561 ml Intake Oral 778 ml 800 ml 2238 ml IV Total 60 ml 1401 ml Output Urine Total 800 ml 1450 ml 4200 ml # Bowel Movements 1 Exam Physical Exam: GEN: Patient was awake, alert, responding appropriately to questions HEENT: PERRLA, EOMI, Neck soft supple, trachea midline, nomocephalic/atraumatic CV: +S1/S2, RRR, no murmurs auscultated Respiratory: CTAB, no wheezes, rales, rhonchi GI: +bowel sounds x4, soft, compressible, non TTP EXT: Right lower extremity improved from yesterday color is improving, there are no areas of normal skin tone and color in the right lower extremity. Left lower extremity no clubbing cyanosis or edema. Right lower extremity cellulitis improved significantly, healing ulcer noted on the distal two thirds of the tibia and plantar surface of the right foot. Musculoskeletal: 5/5 strength with dorsi and plantar flexion, S1 intact Neuro: CN II-XII grossly intact, +2/4 to dorsalis pedis and tibialis posterior pulses bilaterally Psych: mood and affect were appropriate IVs and Medications Medications Reviewed: Medications were reviewed in detail Medications Current Medications Lidocaine HCl 10 ml ONCE PRN INJ; Start 09/06/16 at 14:45 Atropine Sulfate 1 mg ONCE PRN IVPUSH; Start 09/06/16 at 14:45 Sodium Chloride 10 ml AMINAAT PRN IVFLUSH; Start 09/06/16 at 14:45 Clopidogrel Bisulfate 75 mg DAILY PO Last administered on 09/08/16 08:44; Admin Dose 75 MG; Start 09/07/16 at 08:30 Acetaminophen 975 mg Q6H PRN PO; Start 09/06/16 at 14:45 Morphine Sulfate 1-4 MG IV PUSH EVERY 5 DEONTE... Q5M PRN IVPUSH; Start 09/06/16 at 14:45; Stop 09/06/16 at 16:24; Status DC Ondansetron HCl 4-8 MG IV PUSH EVERY 4 HO... Q4H PRN IVPUSH; Start 09/06/16 at 14:45 Morphine Sulfate 2 mg Q4H PRN IVPUSH Last administered on 09/08/16 00:32; Admin Dose 2 MG; Start 09/06/16 at 16:20 Insulin Glargine 10 unit HS SUBQ Last administered on 09/07/16 21:43; Admin Dose 10 UNIT; Start 09/06/16 at 21:00 Metformin HCl 500 mg BID PO Last administered on 09/08/16 08:44; Admin Dose 500 MG; Start 09/06/16 at 20:30 Atorvastatin Calcium 10 mg HS PO Last administered on 09/07/16 21:42; Admin Dose 10 MG; Start 09/06/16 at 21:00 Enoxaparin Sodium 40 mg 40 mg DAILY SUBQ Last administered on 09/08/16 08:45; Admin Dose 40 MG; Start 09/07/16 at 08:30 Ceftriaxone Sodium/Dextrose/ Dextrose/Water 100 ml @ 200 mls/hr Q24 IV Last administered on 09/08/16 09:40; Admin Dose 200 MLS/HR; Start 09/08/16 at 08:30 Insulin Human Lispro PER PROTOCOL PRN SUBQ; Start 09/07/16 at 17:16 Lab and Diagnostics Result Diagram: 09/08/1642 09/08/16 0842 Microbiology Additional Diagnostics Venous duplex right lower extremity IMPRESSION: No evidence of deep vein thrombosis involving the right lower extremity. Dictated by: Mary Morgan MD, PhD on 09/05/2016 at 21:33 Assessment & Plan This 65-year-old male with significant smoking history and diabetes has been untreated presents to the ED with ongoing right lower extremity swelling, pain, erythema, and cyanosis of toes suspicious for arterial occlusion. Suspected arterial embolism/occlusion with subacute limb ischemia; present on admission; ongoing -Patient was previously treated for this erythema with clindamycin without the mildest of resolution; patient reports history of PVD -Patient does not present with fever, white count, left shift, chills, or other signs of infection; patient is diabetic but the history suggests that the eschars started sometime after the erythema and swelling -Venous duplex was negative for DVT -CT angiography of right lower extremity -Discontinue heparin Vascular occlusion secondary to peripheral vascular disease -- Angiogram and angioplasty performed today with stent placement performed by interventional radiology -- Pain control post procedure [place] and morphine for breakthrough pain -- Physical therapy following Cellulitis of the right lower extremity -- Blood cultures positive for gram variable rods non-anthrax sensitivity -- Continue Rocephin New-onset diabetes type II -- Accu-Cheks before meals and at bedtime -- Metformin 500 mg twice a day -- Increase Lantus 20 units daily at bedtime -- Hemoglobin A1c 8.6 -- Consulted nutrition patient amenable to following recommendations Peripheral vascular disease -- LDL elevated 140 -- Elevated cholesterol ratio 5.64 -- Start atorvastatin 10 mg daily at bedtime Smoking cessation -- Patient has been counseled on the benefits of smoking cessation -- Nicotine patch 21 mg daily -- Patient encouraged to continue this regimen when he returns home on discharge. Disposition: Patient is progressing well. Patient's right lower extremity has more blood flow as evident by the return of color in the skin. Patient has been doing well in physical therapy will continue with his daily progression. At this time patient will most likely be discharged home tomorrow. GI Prophylaxis: H2 beni Resuscitation Status: CPR: Attempt Resuscitation Leonor Herr DO Sep 08, 2016 11:49
[2016-09-08] MEDS: Insulin LISPRO Low-Dose Scale SUBQ SCH ×2 (12:18→17:28)
--- NOTE | 2016-09-08 17:35 | NUR ---
Pain/Activity Patient pain level of 4-6/10, managed with [place] 2 tabs and Morphine 2 mg IV for breakthrough with good effect. Able to ambulate to the bathroom without difficulty. Nicotine patch applied for smoking cessation. Patient will possibly be discharged home tomorrow. Will continue to monitor.
--- NOTE | 2016-09-08 20:37 | NUR ---
Constipation Patient feeling constipated had episode tachy per tele when attempting to push prn miralax given Addendum: 09/09/16 at 0458 by DG RODAS RN Had small BM still feeling constipated gave prn senna
[2016-09-08] MEDS ORDERED: Insulin GLARgine 100 Unit/mL Syringe SUBQ SCH (21:00)
[2016-09-09 01:05] VITALS: BP 148/93; PULSE 94; RESP 17; O2SAT 99
[2016-09-09 05:10] VITALS: BP 138/83; PULSE 85; RESP 18; O2SAT 94
[2016-09-09 07:45] VITALS: BP 162/91; PULSE 86; RESP 18; O2SAT 94
[2016-09-09 07:52] LABS: Mean Corpuscular Volume 89.9 fL (81-100)
[2016-09-09] MEDS: Insulin LISPRO Low-Dose Scale SUBQ SCH ×2 (08:05→12:35)
[2016-09-09] MEDS: cefTRIAXone Inj 2,000 MG in Dextrose 5% Minibag Plus 50 ML IV SCH (08:47)
[2016-09-09 10:28] VITALS: PULSE 117
--- NOTE | 2016-09-09 11:43 | NUR ---
Social Work Continued Discharge Planning: SW met with patient at bedside to discuss discharge plan. Patient states plan as home. Patient states having available transport home and has a walker for use. Sw discussed C recommendations by physician for C Rn. Patient states being in agreement. Patient states choice as home with [facility]. Choice list offered and declined. Choice as [facility]. SW contacted [facility], [facility] and [facility] and neither facilities service patient area. Patient aware and states he to follow up with PCP for further discharge related needs. SW unable to arrange HHC as no [facility] company services patient area. PLAN: Home via POV, pending clinical course Yessenia AGUIAR
--- NOTE | 2016-09-09 11:48 | PCM.DIMED ---
Discharge Instructions Date of Service Sep 09, 2016 Dates of Hospitalization Sep 05, 2016 at 22:16 Discharge Diagnosis Discharge Diagnosis Vascular occlusion secondary to peripheral vascular disease Cellulitis of the right lower extremity New-onset diabetes type II New-onset of hyperlipidemia Peripheral vascular disease Smoking cessation Medication Instructions Please monitor your blood glucose at home and keep a record for your primary care physician so that your physician is able to make appropriate adjustments to her medications. Please monitor your glucose before each meal and just before bedtime. Diet Diabetic (please follow the recommendations provided by the casting inspector) Activity Other (gradually return to your daily activities as tolerated) Call your provider Fever or Chills, Shortness of breath, Chest pain, Excessive diarrhea Patient Instructions Please follow-up with your primary care physician within one week. If an appointment has not already been made to call and make an appointment. 1) follow up with your physician in regards to your diabetes. Your PCP will be able to manage your diabetes. Please continue to monitor your blood glucose before meals and at bedtime and record these numbers so your PCP will be able to make better adjustments to her medications. 2) You will need to follow-up with a vascular surgeon as further opening of your femoral vein is still needed. Your PCP should be able to help you coordinate an appointment with a vascular surgeon. 3) please maintain your smoking cessation as this will help with your peripheral vascular disease. 4) You have recently been diagnosed with high cholesterol. Please follow-up with your PCP for further recommendations and management. Follow-up Provider: Tiffany Mitchell MD Follow-up with PCP in: 1 week Follow-up in: 2 weeks (please follow-up with vascular surgery. Please contact your PCP to help with the coordination of this appointment) Leonor Herr DO Sep 09, 2016 11:48
[2016-09-09] MEDS ORDERED: ALBU8.5H2 INHALATION (11:53)
[2016-09-09] MEDS ORDERED: ATOR10TA66 PO (11:53)
[2016-09-09] MEDS ORDERED: METF500T PO (11:53)
[2016-09-09] MEDS ORDERED: NICO1PAT6 TOPICAL (11:53)
[2016-09-09] MEDS ORDERED: HYDR-4003 PO (11:53)
[2016-09-09] MEDS ORDERED: CLOP75TA28 PO (11:53)
[2016-09-09] MEDS ORDERED: INSU100V7 SUBQ (11:53)
[2016-09-09 12:00] VITALS: BP 142/82; PULSE 66; RESP 16; O2SAT 91
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
[2016-09-09] MEDS ORDERED: LANC1COM MC (15:00)
--- NOTE | 2016-09-09 16:05 | NUR ---
Discharge Patient discharge to home via wheelchair, accompanied by [facility] staff. Notes, instructions and hard copy of prescription given and well understood by patient. All personal belongings taken home. Tylenol 975 mg given just before discharge per patient request. Denies any discomfort upon discharge.
[2016-09-09] MEDS ORDERED: Insulin GLARgine 100 Unit/mL Syringe SUBQ SCH (21:00)
--- NOTE | 2016-09-10 15:54 | NUR ---
Diabetic Discharge follow up phone call: Patient called wondering if he was sent home with insulin needles. Stated that he wasn't sure if he had lost it since being discharged from the hospital yesterday. Notified patient that he was not sent home with insulin needles, but with a glucometer, test strips, and lancets in the kit that was given to him by the [facility] RN. Notified patient that per documentation he should have a prescription for needles, lances, and test strips. Stated understanding to monitor and document his blood sugars and to call his primary care physician if his blood sugars are greater than 250 for more than 2 days. No further questions.
--- NOTE | 2016-09-10 16:56 | NUR ---
Patient called back requesting insulin needles and syringes: Patient stated that he did not receive a script for insulin needles and syringes. Dr. Herr, discharging physician called. She will call in a script for insulin needles and syringes to patient's pharmacy, [facility] in [place]. Patient called back and notified.
== END 2016-09-09 16:09 | disposition home or self-care (01) | DRG 253 ==
LOC: SED 16:47 → MOC 22:16
PROVIDERS: ADMIT Internal Medicine; ATTEND Internal Medicine
PROC: 047K3ZZ Dilation of Right Femoral Artery, Percutaneous Approach (ICD-10-PCS; principal; 2016-09-06)
PROC: 047H3DZ Dilation of Right External Iliac Artery with Intraluminal Device, Percutaneous Approach (ICD-10-PCS; 2016-09-06)
PROC: B41D0ZZ Fluoroscopy of Aorta and Bilateral Lower Extremity Arteries using High Osmolar Contrast (ICD-10-PCS; 2016-09-06)
DX: I70.201 Unspecified atherosclerosis of native arteries of extremities, right leg (principal); L03.115 Cellulitis of right lower limb; E11.65 Type 2 diabetes mellitus with hyperglycemia; F17.200 Nicotine dependence, unspecified, uncomplicated; I77.1 Stricture of artery

== ENCOUNTER 2016-09-12 16:05 | Observation (INO) | payer MEDICARE, MEDICAID ==
[~2016-09-12] VITALS: Ht 182.9 cm; Wt 100.9 kg
[~2016-09-12 16:05] MED LIST changes: +ALBU8.5H2 INHALATION; -AMOX-366 PO; -AMOX500C2 PO; -ASPI325T32 PO; +ATOR10TA66 PO; -CHOL500050 PO; -CLIN-78 PO; +CLOP75TA28 PO; -FERR-83 PO; -GABA-502 PO; +INSU100V7 SUBQ; +LANC1COM MC; +METF500T PO; -NICO1PAT5 TOPICAL; +NICO1PAT6 TOPICAL; -OXYC1TAB24 PO; -SENN-133 PO
[2016-09-12 16:09] VITALS: BP 140/93; PULSE 90; RESP 16; O2SAT 96
[2016-09-12] MEDS ORDERED: 0.9% Sodium Chloride 1,000 ML IV ONE (16:44)
[2016-09-12] MEDS ORDERED: Ondansetron 2 mg/mL 2 mL Inj IV PRN (16:45)
[2016-09-12 17:16] LABS: Mean Corpuscular Volume 89.6 fL (81-100)
[2016-09-12 17:20] LABS: EOSINOPHILS % (AUTO) 3.7 % (0-5); MONOCYTES % (AUTO) 8.1 % (4-12); Mean Corpuscular Hemoglobin 31.2 pg (27.0-35.0); NEUTROPHILS % (AUTO) 53.6 % (40-74); Platelet Count 243 bil/L (150-400)
--- NOTE | 2016-09-12 17:31 | ED.REPORT ---
HPI-General Illness Date of Service Sep 12, 2016 ED Provider: Naveen Lake MD A 65 year old male with a history of smoking, diabetes, peripheral vascular disease, and recent admission for RLE cellulitis and occlusion presents to the ED complaining of right foot pain. The pt had an angioplasty and stent placed in his right leg during admission. His pain improved in the hospital and he was discharged three days ago. The pain, however, is now worsening again. It ranges from 5/10 to 8/10. He has been engaging in minor exercise as instructed, which worsens the pain. The pt denies chest pain, fever, nausea, or vomiting. Nursing Notes Stated Complaint: POSSIBLE BLOOD CLOTTING Chief Complaint: Extremity Trauma Nursing Notes Reviewed: Yes Allergies: Coded Allergies: Sulfa (Sulfonamide Antibiotics) (Verified Adverse Reaction, Severe, nausea , vomitting, 09/12/16) Scheduled Atorvastatin Calcium (Atorvastatin Calcium) 10 Mg Tablet 10 MG PO HS Clopidogrel (Clopidogrel) 75 Mg Tablet 75 MG PO DAILY Insulin Glargine (Lantus U100 Insulin Vial) 100 Unit/Ml Vial 30 UNIT SUBQ HS Metformin (Glucophage) 500 Mg Tablet 500 MG PO BID Nicotine 21 mg/24 hr Patch (Nicotine 21 mg/24 hr Patch) 1 Each Patch.td24 1 PATCH TOPICAL DAILY Scheduled PRN Hydrocodone-Acetaminophen 5-325 mg (Hydrocodone-Acetaminophen 5-325 mg) 1 Each Tablet 1-2 TABLET PO Q4H PRN PRN For Mild Pain General Time Seen by MD: 16:44 Chief Complaint Other (Right foot pain) Hx Obtained From: Patient Arrived By: Walk-in Sudden in Onset?: No Symptom Duration: Since onset Recent Healthcare: Recent doctor visit, Recent hospitalization Similar Sx Previous: Yes Past Medical History Past Medical History Notes: PCP: Dr. Mitchell Past Medical History Arthritis Diabetes Peripheral vascular disease Past Surgical History Left index finger Knee Multiple I&D Smoking History Current Every Day Smoker Social History Alcohol Use: 3-5 per day Drug Use: THC Ambulatory Status Independent Review of Systems Full Review of Systems Constitutional: Denies: Fever Respiratory: Denies: Non-productive cough, Shortness of breath Cardiovascular: Denies: Chest pain GI: Denies: Abdominal pain, Nausea, Vomiting Musculoskeletal: Reports: Extremity pain, Denies: Back pain, Neck pain Skin: Denies Rash Complete sys rev & neg: except as marked. Physical Exam Vital Signs Vital Signs Date Time Temp Pulse Resp B/P Pulse Ox O2 Delivery O2 Flow Rate FiO2 09/12/16 16:09 36.4 90 16 140/93 96 Room Air Initial VS: Reviewed General/Constitutional: Awake, Alert Head / Eyes: Atraumatic, Normocephalic, PERRL, EOMI ENT: Atraumatic, Airway patent, Mucous membranes moist Neck: Atraumatic, Supple, Full range of motion Respiratory / Chest: Atraumatic, Breath sounds NL, Breath sounds = bilat, No respiratory distress Cardiovascular: Heart rate NL, Regular rhythm, Heart sounds NL femoral pulse intact Abdomen: Atraumatic, Soft, Non-tender, No palpable mass Back: Atraumatic, Full range of motion Upper Extremities Upper Extremity / MS: Atraumatic, Full range of motion Lower Extremity / Pelvis / MS: Atraumatic, Full range of motion Ankle / Foot: Full range of motion right foot warm and erythematous cap refill 4 seconds Skin: Atraumatic, Color NL, No rash, Warm, Dry Neurologic: Oriented X3, Speech NL, No motor deficits, No sensory deficits Psychiatric: Affect NL, Mood NL Interpretation & Diagnostics Interpretation & Diagnostics: Aortic Arch Arteriogram: IMPRESSION: 1. Mild inflow stenosis within the new right external iliac artery stent. No stent occlusion. The patient's recurrent symptoms may be associated with this finding. Repeat angioplasty of the stent is recommended. 2. Expansile distal right femoral lesion with internal sclerosis and endosteal scalloping redemonstrated. Nonemergent followup is recommended to exclude neoplasm. Dictated by: Ella Amaro M.D. on 09/12/2016 at 17:30 Approved by: Ella Amaro M.D. on 09/12/2016 at 17:37 Lab Results Interpretation Result Diagram: 09/12/16 1706 09/12/16 1706 Test 09/12/16 17:06 White Blood Count 6.2th/mm3 (3.8-10.1) Red Blood Count 4.62mil/mm3 (4.40-5.80) Hemoglobin 14.4g/dL (13.8-17.2) Hematocrit 41.4% (41.0-50.0) Mean Corpuscular Volume 89.6fL (81-100) Mean Corpuscular Hemoglobin 31.2pg (27.0-35.0) Mean Corpuscular Hemoglobin Concent 34.8% (32.0-37.0) Red Cell Distribution Width 12.3% (12.3-15.4) Platelet Count 243bil/L (150-400) Neutrophils (%) (Auto) 53.6% (40-74) Lymphocytes (%) (Auto) 33.4% (14-46) Monocytes (%) (Auto) 8.1% (4-12) Eosinophils (%) (Auto) 3.7% (0-5) Basophils (%) (Auto) 1.0% (0-3) Sodium Level 136mEq/L (134-144) Potassium Level 4.0mEq/L (3.5-5.2) Chloride Level 99mEq/L (97-108) Carbon Dioxide Level 27mmol/L (18-29) Blood Urea Nitrogen 9mg/dL (8-27) Creatinine 0.58mg/dL (0.76-1.27) Estimat Glomerular Filtration Rate 149mL/min (>59) Glucose Level 152mg/dL (60-99) Calcium Level 9.1mg/dL (8.5-10.1) Magnesium Level 2.0mg/dL (1.6-2.6) Total Bilirubin 0.4mg/dL (0.0-1.2) Aspartate Amino Transf (AST/SGOT) 16U/L (0-50) Alanine Aminotransferase (ALT/SGPT) 25U/L (0-44) Alkaline Phosphatase 78U/L (25-160) Total Protein 6.6g/dL (6.4-8.4) Albumin 4.0g/dL (3.4-5.0) Hold Solis Top Tube Received (Received) Re-Eval/Medical Decision Med Decision/Clinical Course Recurrent ischemic pain and right lower extremity following vascular stenting. Interventional radiologist believes they have a candidate for angioplasty. Patient will be admitted to the hospital on observation status for procedure in the morning. Source of Hx: Old records Time of Eval: 17:45 Re-Evaluation/Progress Note: Pt informed of consultations, diagnosis, and plan for admission. The pt understands and agrees with the plan. All questions are addressed at this time. Consultation #1: Referral / Consult Name: Ella Amaro MD Call Returned at: 17:18 Landmen: Will see patient, Agrees with eval, Agrees with plan Note: Spoke with Dr. Amaro, vascular and interventional radiology, regarding pt's imaging. Dr. Amaro has reviewed pt imaging and is concerned that he may need angioplasty. Dr. Amaro recommends overnight admission for angioplasty in the morning. Consultation #2: Referral / Consult Name: Rex Crarillo MD Consulted With: Hospitalist Call Returned at: 18:20 Landmen: Agrees with eval, Agrees with plan, Accepts admit Note: Spoke with Dr. Carrillo, hospitalist, regarding pt's case. Dr. Carrillo agrees with the evaluation and agrees to admit the pt. Counseled Regarding: Diagnosis, Lab results, Need for admission Discharge & Departure Primary Impression: Ischemia of right lower extremity Disposition: ADMITTED TO HOSPITAL Discharge Condition All VS Reviewed: Yes Condition: Stable Referrals: Tiffany Mitchell MD (PCP) Scribe Attestation Portions of this note were transcribed by Elisa Jones I, Dr. Lake personally performed the history, physical exam and medical decision-making; I reviewed and confirmed the accuracy of the information in the transcribed note. Signed by: Tereza Saravia, 09/12/16 and 18:25. copies to: Tiffany Mitchell MD, Donald L MD Sep 12, 2016 17:31 ELISA JONES Sep 12, 2016 18:09
[2016-09-12] MEDS ORDERED: HYDROcodone-APAP 5-325 mg Tablet PO ONE ×2 (17:45→17:55)
--- NOTE | 2016-09-12 17:49 | DRSVH ---
PROCEDURE: CT ANGIOGRAPHY OF THE AORTA WITH RUN-OFF WITH AND WITHOUT CONTRAST ([id number]) INDICATIONS: r/o clotted stent TECHNIQUE: After the administration of intravenous contrast, 2 and 5 mm sections acquired from T12 to the feet, with optional delayed image acquisition from the knees to the feet. 3-dimensional maximum intensity projection (MIP) coronal and sagittal reformats, and/or 3-dimensional volume rendering reformatting w as then performed. For radiation dose reduction, the following was used: automated exposure control . COMPARISON: [facility], CT, CT ANGIO AORTA RUNOFF, 09/06/2016, 7:19. FINDINGS: Image quality: Excellent. Extravascular tissues: Lung bases are clear. Heart size is normal. Liver and spleen are normal in size and enhancement. Gallbladder is unremarkable. Biliary system is non dilated. Pancreas enhance s normally. No adrenal nodules. Kidneys are normal in size and enhancement, without hydronephrosis. Non opacified bowel loops demonstrate normal wall thickness and enhancement. No free fluid or air. No retroperitoneal or mesenteric adenopathy. No ventral hernias. Bladder wall thickness is normal . No inguinal hernias or adenopathy. No suspicious bony lesions. No vertebral body compression fra ctures. Abdominal aorta: Scattered atheromatous calcifications are present throughout the abdominal aorta. No aneurysmal dilatation. Right lower extremity: Atheromatous calcifications are present within the common iliac and the investigator internal affairs al iliac artery. There is a patent external iliac stent within the midportion of the right external i liac which appears mildly stenotic at the inflow. No stent occlusion. A focal stenosis is present wit hin the midportion of the right common femoral artery. The superior aspect of the right SFA is patent with mild mural irregularity. The SFA is occluded near the adductor hiatus. The profunda is patent. There is reconstitution of the popliteal artery via collaterals. There is three-vessel right lower ex tremity runoff. Left lower extremity: Dense atheromatous calcification is present throughout the left common iliac, i nternal iliac, and external iliac artery. No focal stenosis. Diffuse mural irregularity is present th roughout the left common femoral artery. The left profunda is patent. Multiple moderate grade stenose s are present throughout the left superficial femoral artery. The distal left SFA is occluded near th e adductor hiatus. There is reconstitution of the popliteal artery via collaterals. The popliteal art maricruz is patent and there is three-vessel right lower extremity runoff. IMPRESSION: 1. Mild inflow stenosis within the new right external iliac artery stent. No stent occlusion. The pat ient's recurrent symptoms may be associated with this finding. Repeat angioplasty of the stent is rec ommended. 2. Expansile distal right femoral lesion with internal sclerosis and endosteal scalloping redemonstra cornelio. Nonemergent followup is recommended to exclude neoplasm. Dictated by: Ella Amaro M.D. on 09/12/2016 at 17:30 Approved by: Ella Amaro M.D. on 09/12/2016 at 17:37
[2016-09-12] MEDS ORDERED: Alum-Mag Hydrox-Simeth 30 mL Suspension PO PRN (18:30)
[2016-09-12] MEDS ORDERED: Polyethylene Glycol (PEG) 17 Gm Powder PO PRN (18:30)
[2016-09-12] MEDS ORDERED: Ondansetron 2 mg/mL 2 mL Inj IVPUSH PRN (18:30)
[2016-09-12 19:38] VITALS: BP 153/84; PULSE 80; O2SAT 95
--- NOTE | 2016-09-12 20:01 | NUR ---
Admit Note Pt. arrived on floor at 1952. Peripheral IV patent and intact. A&0x3. Pt. rates pain 09/27, and states "pain meds in ER helped a whole lot". Mutiple sores on skin. Oriented to room. Will continue to monitor. Addendum: 09/13/16 at 0320 by CONSUELO ZEPEDA RN Sores on skin are due to poor circulation due to peripheral vascular disease.
[2016-09-12 20:13] VITALS: BP 150/80; PULSE 81; RESP 20; O2SAT 95
[2016-09-12] MEDS: 0.9% Sodium Chloride 1,000 ML IV SCH (21:22)
[2016-09-12] MEDS: Insulin GLARgine 100 Unit/mL Syringe SUBQ SCH (21:43)
--- NOTE | 2016-09-12 21:54 | PCM.HPMED ---
Subjective Date of Service Sep 12, 2016 Primary Provider: Admitting Physician: Rex Carrillo MD Primary Care Physician: Tiffany Mitchell MD Attending Physician: Rex Carrillo MD Admit Status: From the Emergency Department, Admit to Red Team Chief Complaint: Pain and swelling in the right foot with increasing redness. History of Present Illness: Patient is a 65-year-old white male who has a long history of smoking since he was a teenager due to present time. Patient has smoked anywhere between 1/2-2 packs per day and has been trying to quit recently. He is now down to 10 cigarettes a day. However, ironically since he is having problems with this circulation to his foot he has been smoking more as he is more sedentary. Patient presented to the emergency room to 09/05/2016 with progressive lower extremity erythema, swelling, and pain for 3 weeks prior to admission. Patient lives at [place] and then first noticed the swelling 3 weeks prior to that admission when he was noted in. Patient states it took him 2 weeks to get medical attention and he presented to [facility] emergency room department on 08/30/2015 for cellulitis and was given clindamycin oral antibiotic therapy but did not see any improvement in his symptoms. On 2016 after he returned to the emergency room he was admitted. Patient was discovered to have peripheral vascular occlusive disease and reportedly underwent a left external iliac artery stent and a proximal right superficial femoral artery stent. These were performed by Dr. Amaro. Patient was given a short course of antibiotics and then discharged home. Today he noticed increased pain and swelling and redness in his right foot. He then decided to return to [facility] emergency room. Patient was evaluated by Dr. Lake who contacted Dr. Amaro who evaluated the patient in the emergency room. Patient underwent a CT angiogram of the aorta with runoff which showed the following results: 1. Mild inflow stenosis within the new right external iliac artery stent. No stent occlusion. The patient's recurrent symptoms may be associated with this finding. Repeat angioplasty of the stent is recommended. 2. Expansile distal right femoral lesion with internal sclerosis and endosteal scalloping redemonstrated. Nonemergent followup is recommended to exclude neoplasm. After reviewing the above results Dr. Amaro wanted the patient brought in under the hospitalist service overnight for further interventional radiology intervention in the morning. Patient was therefore brought in under observation to the hospital service. Review of Systems: General: Patient is in no apparent distress. He is laying on the gurney in the emergency room and appears comfortable. HEENT: Patient has a headache which has been partially relieved by hydrocodone. The patient has no diplopia, patient however has noticed a decline in his vision over the years and does wear glasses for reading. Patient has no problems with his ears nose or throat. Patient has known dental problems, he believes he has an infected tooth, left lower posterior. Patient has no pharyngitis or history of thrush. Neck: Patient has no stiffness in the neck. Patient has no lymphadenopathy. Patient has no problems with his neck. Pulmonary: Patient has no shortness of breath, no cough, no expectoration of sputum. He has no pleurisy. Patient has no chest pain. Patient has no history of asthma or COPD, as far as he knows. Cardiovascular: Patient has no chest pain. Patient has no history of heart murmur. Patient has no palpitations. Patient has no history of myocardial infarction. Patient has no history of coronary artery disease. The patient has had a stress test years ago which was normal Gastrointestinal: Patient has no history of hepatitis A, B or C. Patient has no history of peptic ulcer disease. Patient has no history of gastroesophageal reflux disease. Patient has no history of nausea, vomiting, or diarrhea. Patient has no history of hematemesis, hematochezia, or melena. Patient has no history of colitis. Renal: Patient has no history of kidney disease. No history of kidney stones. Genitourinary: Patient has no history of dysuria, frequency, or incontinence. Patient has no previous history of genitourinary problems. He has no history of prostate problem Musculoskeletal: Patient states he has had the upper tube "quadrants" of his right knee removed and "thrown away". However he states that he has less problems with his right knee now than he does his left knee. Neurologic: Patient has no history of stroke, no history of seizure, no history of TIA. Psychiatric: Patient has no history of psychiatric problems. The remainder of the complete review of systems was reviewed with patient and is as mentioned above otherwise negative. Allergies Coded Allergies: Sulfa (Sulfonamide Antibiotics) (Verified Adverse Reaction, Severe, nausea , vomitting, 09/12/16) Home Medications Scheduled Albuterol HFA (Proair HFA) 8.5 Gm Hfa.aer.ad 2 PUFFS INHALATION Q4H Atorvastatin Calcium (Atorvastatin Calcium) 10 Mg Tablet 10 MG PO HS Clopidogrel (Clopidogrel) 75 Mg Tablet 75 MG PO DAILY Insulin Glargine (Lantus U100 Insulin Vial) 100 Unit/Ml Vial 30 UNIT SUBQ HS Metformin (Glucophage) 500 Mg Tablet 500 MG PO BID Nicotine 21 mg/24 hr Patch (Nicotine 21 mg/24 hr Patch) 1 Each Patch.td24 1 PATCH TOPICAL DAILY Scheduled PRN Hydrocodone-Acetaminophen 5-325 mg (Hydrocodone-Acetaminophen 5-325 mg) 1 Each Tablet 1-2 TABLET PO Q4H PRN PRN For Mild Pain Ibuprofen (Ibuprofen) 200 Mg Capsule 200 MG PO DAILY PRN PRN For Pain PMH Degenerative joint disease/arthritis Patient states that he was told that he had borderline diabetes and then was told that he did not have diabetes at all he was diagnosed with diabetes on when he came in with a blood sugar of over 300. Patient attributes this to cough drops and sugar that he was eating there appears to be some continued denial of this illness. Patient has peripheral vascular occlusive disease. Patient states that he has a history of cystic acne which she attributes to her to the agent orange when he was 10 years old [place] [facility] [place] [facility]. This is were agent orange he states was manufactured. History of sister is status post study showing that over 30 children and his small neighborhood before they were 30. Both of his sisters before they were 30 years old from cancer as well. Patient states he has these cystic acne lesions have shown up all over his body. The best treatment he states for them as to "puncture them and pull them out with a fishhook" Surgical History Patient had incision and drainage of an abscess/cyst of his left index finger. Patient had the "2 top Quadrants of his right knee removed and thrown away" Patient has multiple incision and drainages of cyst/abscesses. Many of these he has performed a self using home improvements. He states the best implement for removal of some of the cyst is a fishhook. Patient did have a tonsillectomy when he was young Family History Patient's father at the age of 87. Patient's father had coronary artery bypass graft surgery, diabetes and hypertension. Patient's mother at the age of 38 of some sort of "black cancer "which he said spread through her lymphatic system. Patient had 2 sisters that before they were 30 from cancer as they worked for [employer] in [place] Social History Occupation: patient worked in painting Hx Alcohol Use: Yes (Hx of ETOH Abuse) Hx Substance Use: Yes (Marijuana) Hx Tobacco Use: Yes (patient smokes 1-1/2-2 packs a day for years up until recently when he cut back to 10 cigarettes a day. However, he has been smoking more that he is now that he is sedentary.) Smoking Status: Current Every Day Smoker Living Arrangement: Alone Additional Information [place] He states this really manufactured the ingredients for [place]. He states due to this exposure toxins on the train tracks were healing his friends would walk to school he developed cystic acne at the age of 10. He is been plagued by cyst ever since that have erupted all over his body over the years. 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 He then went into [place] and left [place] for [facility] in 1977. He has been there ever since. He retired in 1987 and since then has just done jobs in [employer] and painting.. He has never been . Currently he lives alone with his male cat. Exam Vital Signs Vital Sign - Last Date Time Temp Pulse Resp B/P Pulse Ox O2 Delivery O2 Flow Rate FiO2 09/12/16 20:13 36.7 81 20 150/80 95 Room Air Exam General: Patient is in no apparent distress HEENT: Head is atraumatic normocephalic. Eyes: Pupils are equally round and reactive to light and accommodation. Extraocular muscles are intact. Sclera are white, anicteric. Subconjunctival mucosa is pink. Ears and nose are unremarkable. Oropharynx: There is no mucosal lesions, there is no thrush, there is no pharyngitis. The mucosa was dry Neck: Is supple, there are no nodes or masses or tenderness. Chest: Is clear to auscultation and percussion. There are no rales, rhonchi, wheezes or rubs. However, breath sounds are slightly diminished. Heart: Rate, rhythm is regular. There is no murmur, rub or gallop. Abdomen: Good bowel sounds are present. Abdomen is soft, nontender, no organomegaly or masses were appreciated. Extremities: There are decreased pulses bilaterally slightly more diminished than left. There is slightly more erythema on the right lower extremity below the knee down to the foot however there does not appear to be overt cellulitis. There are some healed skin lesions. No evidence of active infection. Neurologic: There are no focal neurological deficits. Cranial nerves II through XII are intact. There are no sensory or motor deficits. Psychiatric: Patients mood is calm and he shows no sign of agitation. Genital: Deferred Rectal: Deferred Lab and Diagnostics Result Diagram: 09/12/16170509/12/161705 Microbiology Name: SYEDA ZEPEDA JR Age/Sex: 65/M Attend Dr: Elsy Dela Cruz Acct: [id number] Unit: [id number] Status: DIS IN Location: [facility]-1 Re09/05/16 Disch: 09/09/16 Specimen: [id number] Collected: 09/05/16 Status: FLORY Bennett#: [id number] Received: 09/05/16 Source: BLOOD Sp Desc : AA Subm Dr: Vito Cali PA-C Ordered: OPAL Comments: Collected by Nurse/Unit? Y/N N Procedure Result Verified Site Microbiology DANY CULTURE BLOOD Final 09/10/16-619 Organism 1 BACILLUS SPECIES NOT ANTHRAX GRAM STAIN RESULT GRAM VARIABLE RODS BC BOTTLE Isolated from Aerobic Bottle of Set Drawn DATE CALLED: 09/06/16 TIME CALLED: 1814 CALLED BY: MARIA ALEJANDRA FLOOR/DOCTOR: MARISA/LORETA Alvarez READ BACK Y TYPE OF DRAW PERIPHERAL DRAW TIME OF POSITIVITY 1845 ISOLATED FROM OTWO OF FOUR BOTTLES COLLECTED 09/05 Susceptibility testing is not routinely performed on this organism. Name: JAKUB ZEPEDA JR Age/Sex: 64/M Attend Dr: Venita Tracey MD Acct: [id number] Unit: [id number] Status: ADM IN Location: [facility] 2030- Re04/24/15 Disch: Specimen: [id number] Collected: 04/25/15 Status: COMP Req#: [id number] Received: 04/25/15 Source: NOSE Sp Desc : Subm Dr: Carl Birmingham MD Ordered: MRSAS Comments: Collected by Nurse/Unit? Y/N Y Procedure Result Verified Site Microbiology MRSA EXPOSURE SCREEN Final 04/26/15 Screen NEGATIVE for Methicillin Resistant Staph Aureus Assessment & Plan Patient is a 65-year-old white male who has a long history of smoking since he was a teenager due to present time. Patient has smoked anywhere between 1/2-2 packs per day and has been trying to quit recently. He is now down to 10 cigarettes a day. However, ironically since he is having problems with this circulation to his foot he has been smoking more as he is more sedentary. Patient presented to the emergency room to 09/05/2016 with progressive lower extremity erythema, swelling, and pain for 3 weeks prior to admission. Patient lives at [place] and then first noticed the swelling 3 weeks prior to that admission when he was noted in. Patient states it took him 2 weeks to get medical attention and he presented to [facility] emergency room department on 08/30/2015 for cellulitis and was given clindamycin oral antibiotic therapy but did not see any improvement in his symptoms. On 2016 after he returned to the emergency room he was admitted. Patient was discovered to have peripheral vascular occlusive disease and reportedly underwent a left external iliac artery stent and a proximal right superficial femoral artery stent. These were performed by Dr. Amaro. Patient was given a short course of antibiotics and then discharged home. Today he noticed increased pain and swelling and redness in his right foot. He then decided to return to [facility] emergency room. Patient was evaluated by Dr. Lake who contacted Dr. Amaro who evaluated the patient in the emergency room. Patient underwent a CT angiogram of the aorta with runoff which showed the following results: 1. Mild inflow stenosis within the new right external iliac artery stent. No stent occlusion. The patient's recurrent symptoms may be associated with this finding. Repeat angioplasty of the stent is recommended. 2. Expansile distal right femoral lesion with internal sclerosis and endosteal scalloping redemonstrated. Nonemergent followup is recommended to exclude neoplasm. After reviewing the above results Dr. Amaro wanted the patient brought in under the hospitalist service overnight for further interventional radiology intervention in the morning. Patient was therefore brought in under observation to the hospital service. Peripheral vascular occlusive disease as mentioned above -Plan for interventional procedure in a.m. by Dr. Amaro -Continue to monitor closely. -Nothing by mouth after midnight Type II Diabetes mellitus recently undiagnosed and uncontrolled. -Continue metformin as at home -Check blood sugars before meals and at bedtime Right lower extremity pain secondary to peripheral vascular occlusive disease- -Continue hydrocodone as at home No evidence of cellulitis at this time -We will hold antibiotics at this time Disposition: Patient may be able to be discharged after interventional radiology procedure Pain Evaluation: Adequate Pain Control GI Prophylaxis: Proton Pump Inhibitor VTE Prophylaxis: Sub-Q Enoxaparin Resuscitation Status: CPR: Attempt Resuscitation Rex Carrillo MD Sep 12, 2016 21:54
[2016-09-12] MEDS: HYDROcodone-APAP 5-325 mg Tablet PO PRN (22:56)
[2016-09-12 23:13] LABS: APPEARANCE,URINE CLEAR (CLEAR,HAZY); COLOR,URINE YELLOW (YELLOW); OCCULT BLOOD,URINE NEGATIVE (NEGATIVE); UROBILINOGEN,URINE NORMAL (NORMAL)
[2016-09-13] VITALS (16 sets, daily range): BP systolic 126–163; BP diastolic 64–83; PULSE 59–87; RESP 14–22; O2SAT 87–98
[2016-09-13] MEDS: HYDROcodone-APAP 5-325 mg Tablet PO PRN ×4 (03:44→23:19)
[2016-09-13 06:12] LABS: BASOPHILS % (AUTO) 0.9 % (0-3); EOSINOPHILS % (AUTO) 4.3 % (0-5); MONOCYTES % (AUTO) 8.6 % (4-12); Mean Corpuscular Volume 90.7 fL (81-100); NEUTROPHILS % (AUTO) 48.8 % (40-74); Platelet Count 256 bil/L (150-400)
[2016-09-13 06:28] LABS: INR 0.93 ratio
[2016-09-13] MEDS: 0.9% Sodium Chloride 1,000 ML IV SCH ×2 (07:00→21:51)
[2016-09-13] MEDS: Pantoprazole 40 mg ER24 Tablet PO SCH (07:30)
[2016-09-13] MEDS ORDERED: Heparin 1,000 Unit/mL 10 mL Inj ONE (07:41)
[2016-09-13] MEDS ORDERED: Heparin 5,000 Units/500 mL NS Premix IV ONE (07:41)
--- NOTE | 2016-09-13 08:37 | NUR ---
Pt off Unit Pt off unit to Precision Devices Inspector/Tester
[2016-09-13] MEDS ORDERED: fentaNYL-PF 50 mCg/mL 2 mL Inj ONE (08:49)
--- NOTE | 2016-09-13 10:58 | NUR ---
Case Management: Attempted to deliver Medicare Outpatient/Observation Notification and brochure "How Medicare Covers Self-Administered Drugs Given in Hospital Outpatient Settings" - patient was not in room at 1009 - will attempt delivery later today. SAIMA Sanches
--- NOTE | 2016-09-13 11:50 | NUR ---
Pt back from HEATH Pt back from HEATH c/o 03/27 pain in leg. [place] given in HEATH. MD to be paged about medication for breakthrough pain. Pedal pulse present with Doppler. Bio occlusive on right hip is C/D/I with no hematoma formation. Bedrest for 4 hours. A&Ox3. Will continue to monitor.
--- NOTE | 2016-09-13 12:00 | NUR ---
HEATH Patient to [facility] bed 9 at 0935 from labor relations analyst angiogram. No bleeding or hematoma at right groin puncture/manual hold. Pedal pulses present with doppler. On arrival patient denied pain but quickly escalated to 8/10. Medicated with [place] X 2 but patient continued with 8/10 pain. Patient ate and void pr urinal. Transfer back to room 1021 at 1145. Report to receiving RN.
--- NOTE | 2016-09-13 14:20 | NUR ---
Social Work Discharge Planning: SW attempted to meet with patient at bedside to conduct initial assessment. Patient off unit. SW to complete assessment at a more appropriate time. SW to follow. PLAN: Discharge plan in progress, pending assessment. SW to follow. Yessenia AGUIAR
--- NOTE | 2016-09-13 18:21 | NUR ---
Pain Pt has rated pain between 4-8/10 in right leg/calf. Pedal pulses present with Doppler. Cap refill WNL extremity pink and warm to the touch. Pt had some tingling in calf. MD aware. Pain is being controlled with 2-[place] every 4 hours. No bleeding or hematoma at right groin. Bandage is C/D/I. Pt laid flat for 4 hours. After 4 hours pt has been up independently to the bathroom.
[2016-09-13] MEDS: Insulin GLARgine 100 Unit/mL Syringe SUBQ SCH (21:43)
--- NOTE | 2016-09-13 23:34 | PCM.PNMED ---
Subjective Date of Service Sep 13, 2016 Subjective Patient complains of right lower cavity pain after his procedure today. Exam Vital Signs Vital Sign - Last Date Time Temp Pulse Resp B/P Pulse Ox O2 Delivery O2 Flow Rate FiO2 09/13/16 20:35 36.7 79 22 159/83 94 Room Air 09/13/16 11:32 2.00 Intake and Output 09/12/16 09/12/16 09/13/16 Cumulative From/Thru 15:00 23:00 07:00 09/12/16 17:56 - 09/13/16 06:23 Intake Total 1800 ml 1495 ml 3295 ml Output Total 375 ml 775 ml 1150 ml Balance 1425 ml 720 ml 2145 ml Intake Oral 880 ml 880 ml IV Total 1800 ml 615 ml 2415 ml Output Urine Total 375 ml 775 ml 1150 ml Exam General: Patient is in no apparent distress HEENT: Head is atraumatic normocephalic. Eyes: Pupils are equally round and reactive to light and accommodation. Extraocular muscles are intact. Sclera are white, anicteric. Subconjunctival mucosa is pink. Ears and nose are unremarkable. Oropharynx: There is no mucosal lesions, there is no thrush, there is no pharyngitis. The mucosa was dry Neck: Is supple, there are no nodes or masses or tenderness. Chest: Is clear to auscultation and percussion. There are no rales, rhonchi, wheezes or rubs. However, breath sounds are slightly diminished. Heart: Rate, rhythm is regular. There is no murmur, rub or gallop. Abdomen: Good bowel sounds are present. Abdomen is soft, nontender, no organomegaly or masses were appreciated. Extremities: There are decreased pulses bilaterally slightly more diminished than left. There is slightly more erythema on the right lower extremity below the knee down to the foot however there does not appear to be overt cellulitis. There are some healed skin lesions. No evidence of active infection. Neurologic: There are no focal neurological deficits. Cranial nerves II through XII are intact. There are no sensory or motor deficits. Psychiatric: Patients mood is calm and he shows no sign of agitation. Genital: Deferred Rectal: Deferred Lab and Diagnostics Result Diagram: 09/13/16 0536 09/13/16 0536 Microbiology Name: SYEDA ZEPEDA JR Age/Sex: 65/M Attend Dr: Elsy Dela Cruz Acct: [id number] Unit: [id number] Status: DIS IN Location: [facility] [place] 249-1 Re09/05/16 Disch: 09/09/16 Specimen: [id number] Collected: 09/05/16 Status: COMP Req#: [id number] Received: 09/05/16 Source: BLOOD Sp Desc : LINCOLN Craft Dr: Vito Cali PA-C Ordered: OPAL Comments: Collected by Nurse/Unit? Y/N N Procedure Result Verified Site Microbiology DANY CULTURE BLOOD Final 09/10/16-0620 Organism 1 BACILLUS SPECIES NOT ANTHRAX GRAM STAIN RESULT GRAM VARIABLE RODS BC BOTTLE Isolated from Aerobic Bottle of Set Drawn DATE CALLED: 09/06/16 TIME CALLED: 1814 CALLED BY: MARIA ALEJANDRA FLOOR/DOCTOR: MARISA/LORETA Alvarez BC READ BACK Y TYPE OF DRAW PERIPHERAL DRAW TIME OF POSITIVITY 1845 ISOLATED FROM OTWO OF FOUR BOTTLES COLLECTED 09/05 Susceptibility testing is not routinely performed on this organism. Name: JAKUB ZEPEDA JR Age/Sex: 64/M Attend Dr: Venita Tracey MD Acct: [id number] Unit: [id number] Status: ADM IN Location: [facility] 2030-08 Re04/24/15 Disch: Specimen: [id number] Collected: 04/25/15 Status: COMP Req#: [id number] Received: 04/25/15 Source: NOSE Sp Desc : Subm Dr: [place],Cral MD Ordered: MRSAS Comments: Collected by Nurse/Unit? Y/N Y Procedure Result Verified Site Microbiology MRSA EXPOSURE SCREEN Final 04/26/15-1136 Screen NEGATIVE for Methicillin Resistant Staph Aureus X-Rays, CTs and MRIs INDICATIONS: r/o clotted stent TECHNIQUE: After the administration of intravenous contrast, 2 and 5 mm sections acquired from T12 to the feet, with optional delayed image acquisition from the knees to the feet. 3-dimensional maximum intensity projection (MIP) coronal and sagittal reformats, and/or 3-dimensional volume rendering reformatting was then performed. For radiation dose reduction, the following was used: automated exposure control. COMPARISON: [facility], CT, CT ANGIO AORTA RUNOFF, 09/06/2016, 7:19. FINDINGS: Image quality: Excellent. Extravascular tissues: Lung bases are clear. Heart size is normal. Liver and spleen are normal in size and enhancement. Gallbladder is unremarkable. Biliary system is non dilated. Pancreas enhances normally. No adrenal nodules. Kidneys are normal in size and enhancement, without hydronephrosis. Non opacified bowel loops demonstrate normal wall thickness and enhancement. No free fluid or air. No retroperitoneal or mesenteric adenopathy. No ventral hernias. Bladder wall thickness is normal. No inguinal hernias or adenopathy. No suspicious bony lesions. No vertebral body compression fractures. Abdominal aorta: Scattered atheromatous calcifications are present throughout the abdominal aorta. No aneurysmal dilatation. Right lower extremity: Atheromatous calcifications are present within the common iliac and the internal iliac artery. There is a patent external iliac stent within the midportion of the right external iliac which appears mildly stenotic at the inflow. No stent occlusion. A focal stenosis is present within the midportion of the right common femoral artery. The superior aspect of the right SFA is patent with mild mural irregularity. The SFA is occluded near the adductor hiatus. The profunda is patent. There is reconstitution of the popliteal artery via collaterals. There is three-vessel right lower extremity runoff. Left lower extremity: Dense atheromatous calcification is present throughout the left common iliac, internal iliac, and external iliac artery. No focal stenosis. Diffuse mural irregularity is present throughout the left common femoral artery. The left profunda is patent. Multiple moderate grade stenoses are present throughout the left superficial femoral artery. The distal left SFA is occluded near the adductor hiatus. There is reconstitution of the popliteal artery via collaterals. The popliteal artery is patent and there is three- vessel right lower extremity runoff. IMPRESSION: 1. Mild inflow stenosis within the new right external iliac artery stent. No stent occlusion. The patient's recurrent symptoms may be associated with this finding. Repeat angioplasty of the stent is recommended. 2. Expansile distal right femoral lesion with internal sclerosis and endosteal scalloping redemonstrated. Nonemergent followup is recommended to exclude neoplasm. Dictated by: Ella Amaro M.D. on 09/12/2016 at 17:30 Approved by: Ella Amaro M.D. on 09/12/2016 at 17:37 Assessment & Plan Patient is a 65-year-old white male who has a long history of smoking since he was a teenager due to present time. Patient has smoked anywhere between 1/2-2 packs per day and has been trying to quit recently. He is now down to 10 cigarettes a day. However, ironically since he is having problems with this circulation to his foot he has been smoking more as he is more sedentary. Patient presented to the emergency room to 09/05/2016 with progressive lower extremity erythema, swelling, and pain for 3 weeks prior to admission. Patient lives at [place] and then first noticed the swelling 3 weeks prior to that admission when he was noted in. Patient states it took him 2 weeks to get medical attention and he presented to [facility] emergency room department on 08/30/2015 for cellulitis and was given clindamycin oral antibiotic therapy but did not see any improvement in his symptoms. On 2016 after he returned to the emergency room he was admitted. Patient was discovered to have peripheral vascular occlusive disease and reportedly underwent a left external iliac artery stent and a proximal right superficial femoral artery stent. These were performed by Dr. Amaro. Patient was given a short course of antibiotics and then discharged home. Today he noticed increased pain and swelling and redness in his right foot. He then decided to return to [facility] emergency room. Patient was evaluated by Dr. Lake who contacted Dr. Amaro who evaluated the patient in the emergency room. Patient underwent a CT angiogram of the aorta with runoff which showed the following results: 1. Mild inflow stenosis within the new right external iliac artery stent. No stent occlusion. The patient's recurrent symptoms may be associated with this finding. Repeat angioplasty of the stent is recommended. 2. Expansile distal right femoral lesion with internal sclerosis and endosteal scalloping redemonstrated. Nonemergent followup is recommended to exclude neoplasm. After reviewing the above results Dr. Amaro wanted the patient brought in under the hospitalist service overnight for further interventional radiology intervention in the morning. Patient was therefore brought in under observation to the hospital service. Peripheral vascular occlusive disease as mentioned above -The patient underwent interventional procedure today by Dr. Amaro and the report is still pending. -Continue to monitor closely. -Resume heart healthy and diabetic diet Type II Diabetes mellitus recently undiagnosed and uncontrolled. -Continue metformin as at home -Check blood sugars before meals and at bedtime Right lower extremity pain secondary to peripheral vascular occlusive disease- -Continue hydrocodone as at home No evidence of cellulitis at this time -We will hold antibiotics at this time Disposition: Patient may be able to be discharged after interventional radiology procedure report is available Pain Evaluation: Adequate Pain Control GI Prophylaxis: Proton Pump Inhibitor VTE Prophylaxis: Sub-Q Enoxaparin VTE Mechanical Devices: Intermittant Pneumatic CD Resuscitation Status: CPR: Attempt Resuscitation Rex Carrillo MD Sep 13, 2016 23:33
[2016-09-14 00:50] VITALS: BP 142/73; PULSE 73; RESP 16; O2SAT 93
--- NOTE | 2016-09-14 03:16 | NUR ---
Pain/Redness Patient complained of pain from right calf and foot 7/10 on pain scale. Pain medication will be administered at 2300 per patient request. Right calf and foot appears red with minimal warmth. Patient able to stand for assessment. VSS. Call light within reach. Patient resting comfortably.
[2016-09-14] MEDS: HYDROcodone-APAP 5-325 mg Tablet PO PRN ×2 (03:41→09:30)
[2016-09-14 06:00] VITALS: BP 154/86; PULSE 71; RESP 22; O2SAT 93
--- NOTE | 2016-09-14 06:36 | NUR ---
Add family member to Contact List Trini Moran ( patients sister) cell [phone] home [phone]
[2016-09-14 09:09] LABS: BASOPHILS % (AUTO) 0.6 % (0-3); EOSINOPHILS % (AUTO) 3.1 % (0-5); MONOCYTES % (AUTO) 7.5 % (4-12); Mean Corpuscular Volume 89.8 fL (81-100); NEUTROPHILS % (AUTO) 59.8 % (40-74); Platelet Count 265 bil/L (150-400)
[2016-09-14] MEDS: 0.9% Sodium Chloride 1,000 ML IV SCH (09:28)
[2016-09-14] MEDS: Pantoprazole 40 mg ER24 Tablet PO SCH (09:29)
--- NOTE | 2016-09-14 13:21 | PCM.DIMED ---
Discharge Instructions Date of Service Sep 14, 2016 Dates of Hospitalization Sep 12, 2016 at 18:24 Discharge Diagnosis Discharge Diagnosis PVOD with Right Leg Pain Diet Diabetic Activity Limited until seen by PCP (May increase gradually as tolerated) Call your provider Fever or Chills, Shortness of breath, Bleeding, Chest pain, Vomitting, Excessive diarrhea, Weakness (unilateral), Other Patient Instructions Follow-up Provider: Tiffany Mitchell MD Follow-up with PCP in: 1 week Provider: Barry Novoa MD Follow-up in: 2 weeks (For Vascular surgery consultation) Rex Carrillo MD Sep 14, 2016 13:21
[2016-09-14] MEDS ORDERED: SENN-133 PO (13:25)
[2016-09-14] MEDS ORDERED: AMOX-366 PO (13:25)
[2016-09-14] MEDS ORDERED: HYDR-4003 PO (13:25)
--- NOTE | 2016-09-14 14:08 | NUR ---
Discharge patient discharged at 1405hrs today. discharge instructions reviewed with patient. medication, Diagnosis and follow-up care reviewed. patient verbalized understanding and agreed with plan of care.
--- NOTE | 2016-09-15 01:18 | PCM.DC.MED ---
Discharge Summary Date of Service Sep 14, 2016 Dates of Hospitalization Date of Hospital Admission Sep 12, 2016 at 18:24 Date of Discharge: Sep 14, 2016 Providers: Admitting Physician: Rex Carrillo MD Primary Care Physician: Tiffany Mitchell MD Attending Physician: Rex Carrillo MD Diagnosis at Time of Discharge Diagnosis at Time of Discharge PVOD with Right Leg Pain Consultations Dr. Amaro of interventional radiology Procedures XRay, CTs & MRIs INDICATIONS: r/o clotted stent TECHNIQUE: After the administration of intravenous contrast, 2 and 5 mm sections acquired from T12 to the feet, with optional delayed image acquisition from the knees to the feet. 3-dimensional maximum intensity projection (MIP) coronal and sagittal reformats, and/or 3-dimensional volume rendering reformatting was then performed. For radiation dose reduction, the following was used: automated exposure control. COMPARISON: [facility], CT, CT ANGIO AORTA RUNOFF, 09/06/2016, 7:19. FINDINGS: Image quality: Excellent. Extravascular tissues: Lung bases are clear. Heart size is normal. Liver and spleen are normal in size and enhancement. Gallbladder is unremarkable. Biliary system is non dilated. Pancreas enhances normally. No adrenal nodules. Kidneys are normal in size and enhancement, without hydronephrosis. Non opacified bowel loops demonstrate normal wall thickness and enhancement. No free fluid or air. No retroperitoneal or mesenteric adenopathy. No ventral hernias. Bladder wall thickness is normal. No inguinal hernias or adenopathy. No suspicious bony lesions. No vertebral body compression fractures. Abdominal aorta: Scattered atheromatous calcifications are present throughout the abdominal aorta. No aneurysmal dilatation. Right lower extremity: Atheromatous calcifications are present within the common iliac and the internal iliac artery. There is a patent external iliac stent within the midportion of the right external iliac which appears mildly stenotic at the inflow. No stent occlusion. A focal stenosis is present within the midportion of the right common femoral artery. The superior aspect of the right SFA is patent with mild mural irregularity. The SFA is occluded near the adductor hiatus. The profunda is patent. There is reconstitution of the popliteal artery via collaterals. There is three-vessel right lower extremity runoff. Left lower extremity: Dense atheromatous calcification is present throughout the left common iliac, internal iliac, and external iliac artery. No focal stenosis. Diffuse mural irregularity is present throughout the left common femoral artery. The left profunda is patent. Multiple moderate grade stenoses are present throughout the left superficial femoral artery. The distal left SFA is occluded near the adductor hiatus. There is reconstitution of the popliteal artery via collaterals. The popliteal artery is patent and there is three- vessel right lower extremity runoff. IMPRESSION: 1. Mild inflow stenosis within the new right external iliac artery stent. No stent occlusion. The patient's recurrent symptoms may be associated with this finding. Repeat angioplasty of the stent is recommended. 2. Expansile distal right femoral lesion with internal sclerosis and endosteal scalloping redemonstrated. Nonemergent followup is recommended to exclude neoplasm. Dictated by: Ella Amaro M.D. on 09/12/2016 at 17:30 Approved by: Ella Amaro M.D. on 09/12/2016 at 17:37 Brief History Patient is a 65-year-old white male who has a long history of smoking since he was a teenager due to present time. Patient has smoked anywhere between 1/2-2 packs per day and has been trying to quit recently. He is now down to 10 cigarettes a day. However, ironically since he is having problems with this circulation to his foot he has been smoking more as he is more sedentary. Patient presented to the emergency room to 09/05/2016 with progressive lower extremity erythema, swelling, and pain for 3 weeks prior to admission. Patient lives at [place] and then first noticed the swelling 3 weeks prior to that admission when he was noted in. Patient states it took him 2 weeks to get medical attention and he presented to [facility] emergency room department on 08/30/2015 for cellulitis and was given clindamycin oral antibiotic therapy but did not see any improvement in his symptoms. On 2016 after he returned to the emergency room he was admitted. Patient was discovered to have peripheral vascular occlusive disease and reportedly underwent a left external iliac artery stent and a proximal right superficial femoral artery stent. These were performed by Dr. Amaro. Patient was given a short course of antibiotics and then discharged home. Today he noticed increased pain and swelling and redness in his right foot. He then decided to return to [facility] emergency room. Patient was evaluated by Dr. Lake who contacted Dr. Amaro who evaluated the patient in the emergency room. Patient underwent a CT angiogram of the aorta with runoff which showed the following results: 1. Mild inflow stenosis within the new right external iliac artery stent. No stent occlusion. The patient's recurrent symptoms may be associated with this finding. Repeat angioplasty of the stent is recommended. 2. Expansile distal right femoral lesion with internal sclerosis and endosteal scalloping redemonstrated. Nonemergent followup is recommended to exclude neoplasm. After reviewing the above results Dr. Amaro wanted the patient brought in under the hospitalist service overnight for further interventional radiology intervention in the morning. Patient was therefore brought in under observation to the hospital service. Hospital Course Patient is a 65-year-old white male who has a long history of smoking since he was a teenager due to present time. Patient has smoked anywhere between 1/2-2 packs per day and has been trying to quit recently. He is now down to 10 cigarettes a day. However, ironically since he is having problems with this circulation to his foot he has been smoking more as he is more sedentary. Patient presented to the emergency room to 09/05/2016 with progressive lower extremity erythema, swelling, and pain for 3 weeks prior to admission. Patient lives at [place] and then first noticed the swelling 3 weeks prior to that admission when he was noted in. Patient states it took him 2 weeks to get medical attention and he presented to [facility] emergency room department on 08/30/2015 for cellulitis and was given clindamycin oral antibiotic therapy but did not see any improvement in his symptoms. On 2016 after he returned to the emergency room he was admitted. Patient was discovered to have peripheral vascular occlusive disease and reportedly underwent a left external iliac artery stent and a proximal right superficial femoral artery stent. These were performed by Dr. Amaro. Patient was given a short course of antibiotics and then discharged home. Today he noticed increased pain and swelling and redness in his right foot. He then decided to return to [facility] emergency room. Patient was evaluated by Dr. Lake who contacted Dr. Amaro who evaluated the patient in the emergency room. Patient underwent a CT angiogram of the aorta with runoff which showed the following results: 1. Mild inflow stenosis within the new right external iliac artery stent. No stent occlusion. The patient's recurrent symptoms may be associated with this finding. Repeat angioplasty of the stent is recommended. 2. Expansile distal right femoral lesion with internal sclerosis and endosteal scalloping redemonstrated. Nonemergent followup is recommended to exclude neoplasm. After reviewing the above results Dr. Amaro wanted the patient brought in under the hospitalist service overnight for further interventional radiology intervention in the morning. Patient was therefore brought in under observation to the hospital service. Peripheral vascular occlusive disease as mentioned above -The patient underwent interventional procedure today by Dr. Amaro and the final impression was: No significant right sided in-stent, nor persistent stenosis. No right sided inflow stenosis. Moderate left external iliac artery stenosis. Moderate to high-grade left common femoral artery stenosis. If patient's right lower extremity symptomatology does not improve, percutaneous recanalization of the right superficial femoral artery could be attempted at a later date. -Continue to monitor closely. -Resume heart healthy and diabetic diet Type II Diabetes mellitus recently undiagnosed and uncontrolled. -Continue metformin as at home -Check blood sugars before meals and at bedtime Right lower extremity pain secondary to peripheral vascular occlusive disease- -Continue hydrocodone as at home No evidence of cellulitis at this time -We will hold antibiotics at this time Disposition: Patient is feeling much better with decreased pain and right lower extremity he will be discharged home. Exam Vital Signs (Last) Date Time Temp Pulse Resp B/P Pulse Ox O2 Delivery O2 Flow Rate FiO2 09/14/16 06:00 36.5 71 22 154/86 93 Room Air 09/13/16 11:32 2.00 Test 09/12/16 17:06 09/12/16 22:59 09/13/16 05:36 09/14/16 09:00 Hemoglobin A1c 8.2% (4.8-5.6) Hold Solis Top Tube Received (Received) Urine Color Yellow (YELLOW) Urine Appearance Clear (CLEAR,HAZY) Urine pH 6.0 (5.0-8.0) Urine Specific Vina 1.010 (1.003-1.035) Urine Protein Negativemg/dL (NEG,TRACE) Urine Glucose (UA) Negativemg/dL (NEGATIVE) Urine Ketones Negativemg/dL (NEGATIVE) Urine Occult Blood Negative (NEGATIVE) Urine Nitrite Negative (NEGATIVE) Urine Bilirubin Negative (NEGATIVE) Urine Urobilinogen Normalmg/dL (NORMAL) Urine Leukocyte Esterase Negative (NEGATIVE) Urine RBC 0-2/hpf (0-2) Urine WBC 0-5/hpf (0-5) Urine Epithelial Cells Occasional/hpf (NONE-MOD) Urine Crystals None seen (NONE SEEN) Urine Bacteria None/hpf (NONE-FEW) Urine Hyaline Casts None/lpf (NONE) Urine Granular Casts None seen (NONE SEEN) Urine Waxy Casts None seen (NONE SEEN) Urine Red Blood Cell Casts None seen (NONE SEEN) Urine White Blood Cell Casts None seen (NONE SEEN) Urine Mucus None seen (None Seen) Urine Trichomonas None seen (NONE SEEN) Urine Yeast None (NONE SEEN) Urinalysis Comment Urine Culture Reflexed Not indicated Prothrombin Time 9.9sec (8.1-12.5) Prothromb Time International Ratio 0.93ratio C-Reactive Protein 0.6mg/dL (0.0-0.5) White Blood Count 6.8th/mm3 (3.8-10.1) Red Blood Count 4.90mil/mm3 (4.40-5.80) Hemoglobin 15.2g/dL (13.8-17.2) Hematocrit 44.0% (41.0-50.0) Mean Corpuscular Volume 89.8fL (81-100) Mean Corpuscular Hemoglobin 31.0pg (27.0-35.0) Mean Corpuscular Hemoglobin Concent 34.5% (32.0-37.0) Red Cell Distribution Width 12.3% (12.3-15.4) Platelet Count 265bil/L (150-400) Neutrophils (%) (Auto) 59.8% (40-74) Lymphocytes (%) (Auto) 28.7% (14-46) Monocytes (%) (Auto) 7.5% (4-12) Eosinophils (%) (Auto) 3.1% (0-5) Basophils (%) (Auto) 0.6% (0-3) Sodium Level 142mEq/L (134-144) Potassium Level 4.5mEq/L (3.5-5.2) Chloride Level 103mEq/L (97-108) Carbon Dioxide Level 28mmol/L (18-29) Blood Urea Nitrogen 7mg/dL (8-27) Creatinine 0.54mg/dL (0.76-1.27) Estimat Glomerular Filtration Rate 162mL/min (>59) Glucose Level 133mg/dL (60-99) Calcium Level 9.4mg/dL (8.5-10.1) Magnesium Level 2.0mg/dL (1.6-2.6) Total Bilirubin 0.4mg/dL (0.0-1.2) Aspartate Amino Transf (AST/SGOT) 14U/L (0-50) Alanine Aminotransferase (ALT/SGPT) 23U/L (0-44) Alkaline Phosphatase 83U/L (25-160) Total Protein 6.8g/dL (6.4-8.4) Albumin 4.2g/dL (3.4-5.0) Microbiology Results Name: SYEDA ZEPEDA JR Age/Sex: 65/M Attend Dr: Elsy Dela Cruz Acct: [id number] Unit: [id number] Status: DIS IN Location: [place] [address]-1 Re09/05/16 Disch: 09/09/16 Specimen: [id number] Collected: 09/05/16 Status: COMP Req#: [id number] Received: 09/05/16 Source: BLOOD Sp Desc : AA Subm Dr: Vito Cali PA-C Ordered: BC Comments: Collected by Nurse/Unit? Y/N N Procedure Result Verified Site Microbiology DANY CULTURE BLOOD Final 09/10/16-619 Organism 1 BACILLUS SPECIES NOT ANTHRAX GRAM STAIN RESULT GRAM VARIABLE RODS BC BOTTLE Isolated from Aerobic Bottle of Set Drawn DATE CALLED: 09/06/16 TIME CALLED: 1814 CALLED BY: MARIA ALEJANDRA FLOOR/DOCTOR: MARISA/LORETA Alvarez BC READ BACK Y TYPE OF DRAW PERIPHERAL DRAW TIME OF POSITIVITY 1845 ISOLATED FROM OTWO OF FOUR BOTTLES COLLECTED 09/05 Susceptibility testing is not routinely performed on this organism. Name: JAKUB ZEPEDA JR Age/Sex: 64/M Attend Dr: Venita Tracey MD Acct: [id number] Unit: [id number] Status: ADM IN Location: [facility] 2030-08 Re04/24/15 Disch: Specimen: [id number] Collected: 04/25/15 Status: COMP Req#: [id number] Received: 04/25/15 Source: NOSE Sp Desc : Subm Dr: Carl Birmingham MD Ordered: MRSAS Comments: Collected by Nurse/Unit? Y/N Y Procedure Result Verified Site Microbiology MRSA EXPOSURE SCREEN Final 04/26/15 Screen NEGATIVE for Methicillin Resistant Staph Aureus Discharge Medications Discharge Medications Amoxicillin/Clav K 875-125 mg (Augmentin 875-125 mg) 1 Each Tablet 1 TABLET PO BID Prescribed by: MERVIN CARRILLO MD Atorvastatin Calcium (Atorvastatin Calcium) 10 Mg Tablet 10 MG PO HS Prescribed by: SANYA RASMUSSEN DO Clopidogrel (Clopidogrel) 75 Mg Tablet 75 MG PO DAILY Prescribed by: SANYA RASMUSSEN DO Insulin Glargine (Lantus U100 Insulin Vial) 100 Unit/Ml Vial 30 UNIT SUBQ HS Prescribed by: SANYA RASMUSSEN DO Metformin (Glucophage) 500 Mg Tablet 500 MG PO BID Prescribed by: SANYA RASMUSSEN DO Nicotine 21 mg/24 hr Patch (Nicotine 21 mg/24 hr Patch) 1 Each Patch.td24 1 PATCH TOPICAL DAILY Prescribed by: SANYA RASMUSSEN DO As needed Hydrocodone-Acetaminophen 5-325 mg (Hydrocodone-Acetaminophen 5-325 mg) 1 Each Tablet 1-2 TABLET PO Q4H PRN PRN For Mild Pain Prescribed by: SANYA RASMUSSEN DO Hydrocodone-Acetaminophen 5-325 mg (Hydrocodone-Acetaminophen 5-325 mg) 1 Each Tablet 1 TABLET PO Q4H PRN PRN For Pain Prescribed by: MERVIN CARRILLO MD Sennosides (Senna) 8.6 Mg Tablet 17.2 MG PO BID PRN PRN For Constipation Prescribed by: MERVIN CARRILLO MD Followup Plan Disposition: Patient is being discharged home today. Discharge Diet: Diabetic Discharge Activity: Limited until seen by PCP (May increase gradually as tolerated) Follow-up Provider: Tiffany Mitchell MD Follow-up with PCP in: 1 week Provider: Barry Novoa MD Follow-up in: 2 weeks (For Vascular surgery consultation) Time spent Time spent on discharging this patient was greater than 35 minutes, over half of which was involved in counseling and coordination of care. Rex Carrillo MD Sep 15, 2016 01:18
== END 2016-09-14 14:20 | disposition home or self-care (01) ==
LOC: SED 16:05 → OSC 18:24
PROVIDERS: ADMIT Internal Medicine Infectious Disease; ATTEND Internal Medicine Infectious Disease
DX: I77.9 Disorder of arteries and arterioles, unspecified (principal); M79.604 Pain in right leg; E11.9 Type 2 diabetes mellitus without complications; Z79.4 Long term (current) use of insulin; Z79.84 Long term (current) use of oral hypoglycemic drugs; Z95.820 Peripheral vascular angioplasty status with implants and grafts; F17.210 Nicotine dependence, cigarettes, uncomplicated
CPT/HCPCS: 36415; 75635; 75716; 80053; 81000; 83036; 83735; 85025; 85610; 86140; 96360; 96361; 99285; C1769; G0378; J1644; J1650; J1815; J2250; J3010; J7030; Q9967

== ENCOUNTER 2016-09-20 02:25 | Day surgery (SDC) | payer MEDICAID, MEDICARE ==
[~2016-09-20 02:25] MED LIST changes: -ALBU8.5H2 INHALATION; +AMOX-366 PO; -IBUP200C PO; -LANC1COM MC; +SENN-133 PO
== END 2016-09-20 23:59 | disposition home or self-care (01) ==
LOC: SOUO 02:25
PROVIDERS: ATTEND Radiology Vascular & Interventional Radiology
DX: L03.115 Cellulitis of right lower limb (principal)